=== PATIENT | male | born 2000 | race Caucasian/White ===

== ENCOUNTER 2021-01-25 11:13 | Emergency (ER) | payer OTHER ==
[2021-01-25 11:26] VITALS: RESP 18; TEMP 98.4
[2021-01-25] MEDS ORDERED: ONDANSETRON ODT 8 MG TAB.RAPDIS PO STA (12:10)
[2021-01-25] MEDS ORDERED: SODIUM CHLORIDE 0.9% 1,000 ML IV STA ×2 (12:10→13:47)
[2021-01-25] MEDS ORDERED: PANTOPRAZOLE 40 MG/10 ML VIAL IVP STA (12:10)
--- NOTE | 2021-01-25 12:39 | ED ---
General Adult HPI - General Chief complaint: Abdominal Pain Stated complaint: N/V/D Time Seen by Provider: 01/25/21 11:28 Source: patient Mode of arrival: wheelchair Limitations: no limitations - History of Present Illness Initial comments: Patient is a 21-year-old male presenting to the emergency Department with complaints of nausea and vomiting as well as abdominal cramping times one week. He states it started last week after he ate some chicken nuggets. He states he thought he felt better over the weekend but still did not have an appetite. The nausea and vomiting then started today again so he decided to come into the ER. Denies any diarrhea. He states he was unable to take his Effexor medication for approximately 3 days secondary to the vomiting so he felt like he might be withdrawing from that medication. He does admit to being a daily alcohol drinker, last drink was over 1 week ago. He has a history of an ulcer as well, takes omeprazole for that. He admits to history of appendectomy, no other abdominal surgeries. He states his cramping is generalized, no specific area pain. He denies any fevers, he does have some chills. No chest pain or shortness of breath, no coughing. He has no further complaints at this time. Upon arrival to the ER, his vital signs are stable. - Related Data Home Medications Medication Instructions Recorded Confirmed Methylphenidate HCl 20 mg PO BID@0700,1300 01/25/21 01/25/21 [Methylphenidate LA] Omeprazole 40 mg PO DAILY 01/25/21 01/25/21 Venlafaxine HCl ER [Effexor Xr] 75 mg PO DAILY 01/25/21 01/25/21 Previous Rx's Medication Instructions Recorded Ondansetron Odt [Zofran Odt] 4 mg PO Q8HR PRN #10 tab 01/25/21 Allergies Allergy/AdvReac Type Severity Reaction Status Date / Time No Known Allergies Allergy Verified 01/25/21 12:11 Review of Systems ROS Statement: Those systems with pertinent positive or pertinent negative responses have been documented in the HPI. ROS Other: All systems not noted in ROS Statement are negative. Past Medical History Past Medical History: GI Bleed Additional Past Medical History / Comment(s): ulcer History of Any Multi-Drug Resistant Organisms: None Reported Past Surgical History: Appendectomy Past Psychological History: Depression Smoking Status: Current every day smoker Past Alcohol Use History: Daily, Occasional Past Drug Use History: None Reported, Marijuana General Exam - General Exam Comments Initial Comments: GENERAL: Patient is well-developed and well-nourished. Patient is nontoxic and in no acute distress. HEAD: Atraumatic, normocephalic. EYES: Pupils equal round and reactive to light, extraocular movements intact, sclera anicteric, conjunctiva are normal. Eyelids were unremarkable. ENT: TMs normal, nares patent, oropharynx clear without exudates. Moist mucous membranes. NECK: Normal range of motion, supple without lymphadenopathy or JVD. LUNGS: Unlabored respirations. Breath sounds clear to auscultation bilaterally and equal. No wheezes rales or rhonchi. HEART: Regular rate and rhythm without murmurs, rubs or gallops. ABDOMEN: Generalized abdominal tenderness, no specific area pain. Soft, normoactive bowel sounds. No guarding, no rebound. No masses appreciated. : Deferred MUSCULOSKELETAL: Normal extremities with adequate strength and normal range of motion, no pitting or edema. No clubbing or cyanosis. NEUROLOGICAL: Patient is alert and oriented x 3. Motor and sensory are also intact. Cranial nerves II through XII grossly intact. Symmetrical smile. Normal speech, normal gait. PSYCH: Normal mood, normal affect. SKIN: Warm, Dry, normal turgor, no rashes or lesions noted. Limitations: no limitations Course Vital Signs 01/25/21 01/25/21 01/25/21 11:21 13:54 15:23 Temperature 98.4 F 98.4 F Pulse Rate 97 71 80 Respiratory 18 18 18 Rate Blood Pressure 103/59 154/95 110/85 O2 Sat by Pulse 99 100 100 Oximetry Medical Decision Making - Medical Decision Making Patient is a 21-year-old male here for nausea and vomiting times one week. No fevers, his vitals are stable here. He is generalized abdominal tenderness with palpation, no specific area pain. He does admit to being a daily drinker, last drink was 1 week ago. Labs revealed an elevated white count at 26.9, glucose was 214, lactic acid is 1.9. Lipase was normal at 39. Urine showed 3+ ketones, 2+ glucose. Serum alcohol was less than 10. After lab work revealed elevated white count, did order a CT of the abdomen which shows some scattered prominent but not a large mid abdominal and right lower quadrant mesenteric lymph nodes measuring up to 7 mm, there is some mild thickening of the left abdominal jejunal loops, correlate for enteritis, mild mesenteric adenitis. Patient was given 2 L of fluids, Protonix and Zofran. He reports much improvement in his symptoms. He has had no further vomiting. I discussed these findings with the patient and his mother. Patient is stable for discharge. I recommended continuing to increase his fluid intake, will give him some Zofran for any additional nausea. I will also give him GI referral. He needs also follow-up with his doctor within 1-3 days for lab recheck. Patient and patient's mother are both in agreement with this plan of care. Patient is stable for discharge. Patient is in agreement with this plan of care. Return parameters were discussed with the patient and they verbalized understanding. Case discussed with Dr. Barlow. - Lab Data Result diagrams: 01/25/21 12:29 01/25/21 12:29 Lab Results 01/25/21 01/25/21 01/25/21 Range/Units 12:29 12:29 12:29 WBC 26.9 H (3.8-10.6) k/uL RBC 5.36 (4.30-5.90) m/uL Hgb 16.5 (13.0-17.5) gm/dL Hct 47.2 (39.0-53.0) % MCV 88.0 (80.0-100.0) fL MCH 30.8 (25.0-35.0) pg MCHC 35.0 (31.0-37.0) g/dL RDW 12.4 (11.5-15.5) % Plt Count 376 (150-450) k/uL MPV 8.4 Neutrophils % 94 % Lymphocytes % 2 % Monocytes % 2 % Eosinophils % 2 % Basophils % 0 % Neutrophils # 25.3 H (1.3-7.7) k/uL Lymphocytes # 0.4 L (1.0-4.8) k/uL Monocytes # 0.6 (0-1.0) k/uL Eosinophils # 0.5 (0-0.7) k/uL Basophils # 0.1 (0-0.2) k/uL Manual Slide Review Performed Toxic Granulation Present PT (9.0-12.0) sec INR (<1.2) APTT (22.0-30.0) sec Sodium 136 L (137-145) mmol/L Potassium 4.5 (3.5-5.1) mmol/L Chloride 100 (98-107) mmol/L Carbon Dioxide 19 L (22-30) mmol/L Anion Gap 17 mmol/L BUN 20 (9-20) mg/dL Creatinine 1.23 (0.66-1.25) mg/dL Est GFR (CKD-EPI)AfAm >90 (>60 ml/min/1.73 sqM) Est GFR (CKD-EPI)NonAf 83 (>60 ml/min/1.73 sqM) Glucose 214 H (74-99) mg/dL Plasma Lactic Acid Dixon (0.7-2.0) mmol/L Calcium 10.9 H (8.4-10.2) mg/dL Total Bilirubin 1.5 H (0.2-1.3) mg/dL AST 26 (17-59) U/L ALT 25 (4-49) U/L Alkaline Phosphatase 75 (38-126) U/L Total Protein 8.8 H (6.3-8.2) g/dL Albumin 5.5 H (3.5-5.0) g/dL Amylase 59 (30-110) U/L Lipase 39 (23-300) U/L Urine Color Light Red Urine Appearance Cloudy (Clear) Urine pH 6.5 (5.0-8.0) Ur Specific [place] 1.038 H (1.001-1.035) Urine Protein 2+ H (Negative) Urine Glucose (UA) 2+ H (Negative) Urine Ketones 3+ H (Negative) Urine Blood Negative (Negative) Urine Nitrite Negative (Negative) Urine Bilirubin 1+ H (Negative) Urine Urobilinogen 2.0 (<2.0) mg/dL Ur Leukocyte Esterase Negative (Negative) Urine RBC 1 (0-5) /hpf Urine WBC 3 (0-5) /hpf Ur Squamous Epith Cells <1 (0-4) /hpf Urine Bacteria Rare H (None) /hpf Urine Mucus Many H (None) /hpf Urine Opiates Screen (NotDetected) Ur Oxycodone Screen (NotDetected) Urine Methadone Screen (NotDetected) Ur Propoxyphene Screen (NotDetected) Ur Barbiturates Screen (NotDetected) U Tricyclic Antidepress (NotDetected) Ur Phencyclidine Scrn (NotDetected) Ur Amphetamines Screen (NotDetected) U Methamphetamines Scrn (NotDetected) U Benzodiazepines Scrn (NotDetected) Urine Cocaine Screen (NotDetected) U Marijuana (THC) Screen (NotDetected) Serum Alcohol <10 mg/dL 01/25/21 01/25/21 01/25/21 Range/Units 12:29 12:29 12:29 WBC (3.8-10.6) k/uL RBC (4.30-5.90) m/uL Hgb (13.0-17.5) gm/dL Hct (39.0-53.0) % MCV (80.0-100.0) fL MCH (25.0-35.0) pg MCHC (31.0-37.0) g/dL RDW (11.5-15.5) % Plt Count (150-450) k/uL MPV Neutrophils % % Lymphocytes % % Monocytes % % Eosinophils % % Basophils % % Neutrophils # (1.3-7.7) k/uL Lymphocytes # (1.0-4.8) k/uL Monocytes # (0-1.0) k/uL Eosinophils # (0-0.7) k/uL Basophils # (0-0.2) k/uL Manual Slide Review Toxic Granulation PT 11.6 (9.0-12.0) sec INR 1.1 (<1.2) APTT 23.5 (22.0-30.0) sec Sodium (137-145) mmol/L Potassium (3.5-5.1) mmol/L Chloride (98-107) mmol/L Carbon Dioxide (22-30) mmol/L Anion Gap mmol/L BUN (9-20) mg/dL Creatinine (0.66-1.25) mg/dL Est GFR (CKD-EPI)AfAm (>60 ml/min/1.73 sqM) Est GFR (CKD-EPI)NonAf (>60 ml/min/1.73 sqM) Glucose (74-99) mg/dL Plasma Lactic Acid Dixon 1.9 (0.7-2.0) mmol/L Calcium (8.4-10.2) mg/dL Total Bilirubin (0.2-1.3) mg/dL AST (17-59) U/L ALT (4-49) U/L Alkaline Phosphatase (38-126) U/L Total Protein (6.3-8.2) g/dL Albumin (3.5-5.0) g/dL Amylase (30-110) U/L Lipase (23-300) U/L Urine Color Urine Appearance (Clear) Urine pH (5.0-8.0) Ur Specific [place] (1.001-1.035) Urine Protein (Negative) Urine Glucose (UA) (Negative) Urine Ketones (Negative) Urine Blood (Negative) Urine Nitrite (Negative) Urine Bilirubin (Negative) Urine Urobilinogen (<2.0) mg/dL Ur Leukocyte Esterase (Negative) Urine RBC (0-5) /hpf Urine WBC (0-5) /hpf Ur Squamous Epith Cells (0-4) /hpf Urine Bacteria (None) /hpf Urine Mucus (None) /hpf Urine Opiates Screen Not Detected (NotDetected) Ur Oxycodone Screen Not Detected (NotDetected) Urine Methadone Screen Not Detected (NotDetected) Ur Propoxyphene Screen Not Detected (NotDetected) Ur Barbiturates Screen Not Detected (NotDetected) U Tricyclic Antidepress Not Detected (NotDetected) Ur Phencyclidine Scrn Not Detected (NotDetected) Ur Amphetamines Screen Not Detected (NotDetected) U Methamphetamines Scrn Not Detected (NotDetected) U Benzodiazepines Scrn Not Detected (NotDetected) Urine Cocaine Screen Not Detected (NotDetected) U Marijuana (THC) Screen Detected H (NotDetected) Serum Alcohol mg/dL Disposition Clinical Impression: Nausea & vomiting, Leukocytosis, Mesenteric adenitis Disposition: HOME SELF-CARE Condition: Stable Instructions (If sedation given, give patient instructions): Mesenteric Adenitis (ED) Additional Instructions: Please return to the Emergency Department if symptoms worsen or any other concerns. Continue to increase fluid intake. May take Zofran for any additional nausea. Please follow-up with your regular physician in 1-3 days. Prescriptions: Ondansetron Odt [Zofran Odt] 4 mg PO Q8HR PRN #10 tab PRN Reason: Nausea Is patient prescribed a controlled substance at d/c from ED?: No Referrals: Joshua Simms MD [Primary Care Provider] - 1-2 days Mehnaz Chatman MD [STAFF PHYSICIAN] - 1-2 days
[2021-01-25 13:29] LABS: Basophils # (A) 0.1 k/uL (0-0.2); Basophils % (A) 0 %; Eosinophils # (A) 0.5 k/uL (0-0.7); Eosinophils % (A) 2 %; HCT 47.2 % (39.0-53.0); HGB 16.5 gm/dL (13.0-17.5); Lymphocytes # (A) 0.4 k/uL (1.0-4.8); Lymphocytes % (A) 2 %; MCH 30.8 pg (25.0-35.0); Mean Platelet Volume 8.4; Monocytes # (A) 0.6 k/uL (0-1.0); Monocytes % (A) 2 %; Neutrophils # (A) 25.3 k/uL (1.3-7.7); Neutrophils % (A) 94 %; Platelet Count 376 k/uL (150-450); RBC 5.36 m/uL (4.30-5.90); RDW 12.4 % (11.5-15.5); WBC 26.9 k/uL (3.8-10.6)
[2021-01-25 13:31] LABS: Appearance,Urine Cloudy (Clear); Bacteria,Urine Rare /hpf; Bilirubin,Urine 1+ (Negative); Blood,Urine Negative (Negative); Color,Urine Light Red; Glucose,Urine (UA) 2+ (Negative); INR 1.1 (<1.2); Leukocyte Esterase,Urine Negative (Negative); Mucus,Urine Many /hpf; Nitrite,Urine Negative (Negative); PH, Urine 6.5 (5.0-8.0); Partial Thromboplastin Time 23.5 sec (22.0-30.0); Protein,Urine 2+ (Negative); Prothrombin Time 11.6 sec (9.0-12.0); RBC,Urine 1 /hpf (0-5); Specific Gravity,Urine 1.038 (1.001-1.035); Squamous Epithelial Cell,Urine <1 /hpf (0-4); WBC,Urine 3 /hpf (0-5)
[2021-01-25 13:40] LABS: Amphetamine Screen,Urine Not Detected (NotDetected); Barbiturate Screen,Urine Not Detected (NotDetected); Benzodiazepines Screen,Urine Not Detected (NotDetected); Cocaine Screen,Urine Not Detected (NotDetected); Methadone Screen, Urine Not Detected (NotDetected); Opiate Screen,Urine Not Detected (NotDetected); Oxycodone Screen, Urine Not Detected (NotDetected); Phencyclidine Screen,Urine Not Detected (NotDetected); Tricyclic Antidepressant,Urine Not Detected (NotDetected); Urn Cannabinoid Scrn Detected (NotDetected)
[2021-01-25 13:45] LABS: Ketones,Urine 3+ (Negative)
[2021-01-25 13:50] LABS: ALT 25 U/L (4-49); AST 26 U/L (17-59); African American GFR (CKD) >90 (>60 ml/min/1.73 sqM); Albumin 5.5 g/dL (3.5-5.0); Alcohol <10 mg/dL; Alkaline Phosphatase 75 U/L (38-126); Amylase 59 U/L (30-110); Anion Gap 17 mmol/L; Blood Urea Nitrogen 20 mg/dL (9-20); Calcium 10.9 mg/dL (8.4-10.2); Carbon Dioxide 19 mmol/L (22-30); Chloride 100 mmol/L (98-107); Glucose 214 mg/dL (74-99); Lipase 39 U/L (23-300); Non-African American GFR(CKD) 83 (>60 ml/min/1.73 sqM); Potassium 4.5 mmol/L (3.5-5.1); Sodium 136 mmol/L (137-145); Total Bilirubin 1.5 mg/dL (0.2-1.3); Total Protein 8.8 g/dL (6.3-8.2)
[2021-01-25] MEDS ORDERED: METOCLOPRAMIDE 5 MG/ML 2 ML VIAL IVP STA (13:50)
[2021-01-25 14:16] LABS: Toxic Granulation Present
--- NOTE | 2021-01-25 14:26 | CT ---
EXAMINATION TYPE: CT abdomen pelvis w con DATE OF EXAM: 01/25/2021 COMPARISON: NONE HISTORY: 21-year-old male nausea, vomiting, generalized pain TECHNIQUE: Contiguous axial scanning of the abdomen and pelvis following administration of 100 ml Iso kervin 300 IV contrast. Delayed images through the kidneys and coronal/sagittal reconstructions perform ed. CT DLP: 630.2 mGycm Automated exposure control for dose reduction was used. FINDINGS: Heart normal size without pericardial effusion. Lung bases clear without pleural effusion. Liver borderline in size at 17.5 cm. No focal liver lesion or biliary ductal dilatation. Portal venou s system is patent. Gallbladder, adrenal glands, kidneys, spleen, and pancreas appear within normal limits. No dilated small bowel, free fluid, or free air. Some scattered prominent but nonenlarged mid abdomin al and right lower quadrant mesenteric lymph nodes measuring up to 7 mm. Some of the left abdominal j ejunal loops are also mildly thickened. Incidental 1.5 cm long small bowel intussusception in the pos terior lower pelvis, referred axial image 62 and coronal image 75. Hyperdense material scattered within left-sided abdominal jejunal loops and also within the duodenum and stomach. Some surgical material noted in the right lower quadrant probably related to prior appendectomy. Clin ically correlate. Mild stool in the right-sided colon. No pericolonic inflammation. Bladder partially distended. No abnormal fluid collection in the pelvis or pelvic lymphadenopathy. Bones: No osseous destructive process. Small inferior Schmorl's node of L5. IMPRESSION: 1. HYPERDENSE MATERIAL SCATTERED THROUGHOUT LEFT-SIDED JEJUNAL LOOPS. SUSPECT SOME TYPE OF INGESTED M EDICATION SUCH PEPTO-BISMOL. 2. SOME SCATTERED PROMINENT BUT NONENLARGED MID ABDOMINAL AND RIGHT LOWER QUADRANT MESENTERIC LYMPH N ODES MEASURING UP TO 7 MM. ALSO, MILDLY THICKENED LEFT ABDOMINAL JEJUNAL LOOPS. CORRELATE FOR AN ENTE RITIS/MILD MESENTERIC ADENITIS.
[2021-01-25] MEDS ORDERED: ONDANSETRON 4 MG ODT STARTER PACK 2 TAB BTL PO STA (15:05)
[2021-01-25 15:25] VITALS: BP 110/85; PULSE 80
== END 2021-01-25 15:26 | disposition home or self-care (01) ==
LOC: EC 11:13
DX: I88.0 Nonspecific mesenteric lymphadenitis (principal); D72.829 Elevated white blood cell count, unspecified; F32.9 Major depressive disorder, single episode, unspecified; F12.90 Cannabis use, unspecified, uncomplicated; F17.200 Nicotine dependence, unspecified, uncomplicated; Z90.49 Acquired absence of other specified parts of digestive tract
CPT/HCPCS: 36415; 80053; 82150; 83605; 83690; 85025; 85610; 85730; 81001; 80306; 80320; 74177; 99284; 96374; 96375; 96361; J2765; S0119; C9113; Q9967

== ENCOUNTER 2021-06-15 07:52 | Inpatient (IN) | payer OTHER ==
[2021-06-15] MEDS ORDERED: diphenhydrAMINE 50 MG/ML 1 ML VIAL IVP STA (08:16)
[2021-06-15] MEDS ORDERED: ONDANSETRON 4 MG/2 ML VIAL IVP STA (08:16)
[2021-06-15] MEDS ORDERED: SODIUM CHLORIDE 0.9% 1,000 ML IV STA ×2 (08:16→09:15)
[2021-06-15] MEDS ORDERED: PANTOPRAZOLE 40 MG/10 ML VIAL IVP STA (08:17)
--- NOTE | 2021-06-15 08:29 | ED ---
Nausea/Vomiting/Diarrhea HPI - General Chief complaint: Nausea/Vomiting/Diarrhea Stated complaint: vomiting Time Seen by Provider: 06/15/21 08:03 Source: patient Mode of arrival: wheelchair Limitations: no limitations - History of Present Illness Initial comments: Patient is a 21-year-old male presenting to the emergency Department with complaints of nausea and vomiting over the past 2 days. He does admit to abdominal cramping, no specific area abdominal pain. Does have a little bit of diarrhea as well. He's had a similar episode happen a few months ago. He does admit to smoking marijuana and that is what seems to be bringing it on. He does occasionally drink alcohol as well. He does admit to previous appendectomy, no other abdominal surgeries. He denies any fevers or chills, no chest pain or shortness of breath. His no further complaints at this time. - Related Data Allergies Allergy/AdvReac Type Severity Reaction Status Date / Time No Known Allergies Allergy Verified 06/15/21 09:23 Review of Systems ROS Statement: Those systems with pertinent positive or pertinent negative responses have been documented in the HPI. ROS Other: All systems not noted in ROS Statement are negative. Past Medical History Past Medical History: GI Bleed Additional Past Medical History / Comment(s): ulcer, chs History of Any Multi-Drug Resistant Organisms: None Reported Past Surgical History: Appendectomy Past Psychological History: Depression Smoking Status: Current every day smoker Past Alcohol Use History: Occasional Past Drug Use History: Marijuana General Exam - General Exam Comments Initial Comments: GENERAL: Patient is well-developed and well-nourished. Patient is nontoxic and in mild distress. HEAD: Atraumatic, normocephalic. EYES: Pupils equal round and reactive to light, extraocular movements intact, sclera anicteric, conjunctiva are normal. Eyelids were unremarkable. ENT: Nares patent, oropharynx clear without exudates. Moist mucous membranes. NECK: Normal range of motion, supple without lymphadenopathy or JVD. LUNGS: Unlabored respirations. Breath sounds clear to auscultation bilaterally and equal. No wheezes rales or rhonchi. HEART: Regular rate and rhythm without murmurs, rubs or gallops. ABDOMEN: Soft, generalized abdominal discomfort with palpation, no specific area pain, normoactive bowel sounds. No guarding, no rebound. No masses appreciated. : Deferred MUSCULOSKELETAL: Normal extremities with adequate strength and normal range of motion, no pitting or edema. No clubbing or cyanosis. NEUROLOGICAL: Patient is alert and oriented x 3. PSYCH: Normal mood, normal affect. SKIN: Warm, Dry, normal turgor, no rashes or lesions noted. Limitations: no limitations Course Vital Signs 06/15/21 07:54 Temperature 97.7 F Pulse Rate 115 H Respiratory 18 Rate Blood Pressure 158/129 O2 Sat by Pulse 99 Oximetry Medical Decision Making - Medical Decision Making Patient is a 21-year-old male here for nausea and vomiting for 2 days. He does admit to smoking marijuana and this usually will bring it on. He does admit to some abdominal cramping, no specific area pain. No fevers. Labs show a white count 22.7, sodium is 134, creatinine is 4.93 with BUN 33, glucose is 250. Lipase is 70. Patient given a liter of fluids, Benadryl and Zofran does report some mild improvement in his symptoms. Given patient's creatinine, patient will be admitted for DANTE, n/v. Patient accepted by Dr. Samson, with consult to nephrology. Urinalysis, ultrasound of kidneys are pending. Discussed with Dr. Guerrier. - Lab Data Result diagrams: 06/15/21 08:20 06/15/21 08:20 Lab Results 06/15/21 06/15/21 Range/Units 08:20 08:20 WBC 22.7 H (3.8-10.6) k/uL RBC 5.59 (4.30-5.90) m/uL Hgb 17.6 H (13.0-17.5) gm/dL Hct 50.8 (39.0-53.0) % MCV 90.8 (80.0-100.0) fL MCH 31.6 (25.0-35.0) pg MCHC 34.8 (31.0-37.0) g/dL RDW 12.1 (11.5-15.5) % Plt Count 321 (150-450) k/uL MPV 8.3 Neutrophils % 90 % Lymphocytes % 3 % Monocytes % 4 % Eosinophils % 2 % Basophils % 0 % Neutrophils # 20.5 H (1.3-7.7) k/uL Lymphocytes # 0.7 L (1.0-4.8) k/uL Monocytes # 0.9 (0-1.0) k/uL Eosinophils # 0.4 (0-0.7) k/uL Basophils # 0.1 (0-0.2) k/uL Sodium 134 L (137-145) mmol/L Potassium 4.4 (3.5-5.1) mmol/L Chloride 90 L (98-107) mmol/L Carbon Dioxide 17 L (22-30) mmol/L Anion Gap 27 mmol/L BUN 33 H (9-20) mg/dL Creatinine 4.93 H (0.66-1.25) mg/dL Est GFR (CKD-EPI)AfAm 18 (>60 ml/min/1.73 sqM) Est GFR (CKD-EPI)NonAf 15 (>60 ml/min/1.73 sqM) Glucose 250 H (74-99) mg/dL Calcium 11.6 H (8.4-10.2) mg/dL Total Bilirubin 1.2 (0.2-1.3) mg/dL AST 32 (17-59) U/L ALT 23 (4-49) U/L Alkaline Phosphatase 80 (38-126) U/L Total Protein 10.4 H (6.3-8.2) g/dL Albumin >6.6 H (3.5-5.0) g/dL Lipase 69 (23-300) U/L Disposition Clinical Impression: DANTE (acute kidney injury), Dehydration, Nausea & vomiting Disposition: ADMITTED IP TO THIS [facility] Condition: Stable Is patient prescribed a controlled substance at d/c from ED?: No Referrals: Joshua Simms MD [Primary Care Provider] - 1-2 days Decision Date: 06/15/21 Decision Time: 09:23
[2021-06-15 08:31] LABS: Basophils # (A) 0.1 k/uL (0-0.2); Basophils % (A) 0 %; Eosinophils # (A) 0.4 k/uL (0-0.7); Eosinophils % (A) 2 %; HCT 50.8 % (39.0-53.0); HGB 17.6 gm/dL (13.0-17.5); Lymphocytes # (A) 0.7 k/uL (1.0-4.8); Lymphocytes % (A) 3 %; MCH 31.6 pg (25.0-35.0); MCHC 34.8 g/dL (31.0-37.0); MCV 90.8 fL (80.0-100.0); Mean Platelet Volume 8.3; Monocytes # (A) 0.9 k/uL (0-1.0); Monocytes % (A) 4 %; Neutrophils # (A) 20.5 k/uL (1.3-7.7); Neutrophils % (A) 90 %; Platelet Count 321 k/uL (150-450); RBC 5.59 m/uL (4.30-5.90); RDW 12.1 % (11.5-15.5); WBC 22.7 k/uL (3.8-10.6)
[2021-06-15 08:41] LABS: ALT 23 U/L (4-49); AST 32 U/L (17-59); African American GFR (CKD) 18 (>60 ml/min/1.73 sqM); Alkaline Phosphatase 80 U/L (38-126); Anion Gap 27 mmol/L; Blood Urea Nitrogen 33 mg/dL (9-20); Calcium 11.6 mg/dL (8.4-10.2); Carbon Dioxide 17 mmol/L (22-30); Chloride 90 mmol/L (98-107); Glucose 250 mg/dL (74-99); Lipase 69 U/L (23-300); Non-African American GFR(CKD) 15 (>60 ml/min/1.73 sqM); Potassium 4.4 mmol/L (3.5-5.1); Sodium 134 mmol/L (137-145); Total Bilirubin 1.2 mg/dL (0.2-1.3); Total Protein 10.4 g/dL (6.3-8.2)
[2021-06-15 09:14] LABS: Albumin >6.6 g/dL (3.5-5.0)
[2021-06-15] MEDS ORDERED: NALOXONE 0.4 MG/ML 1 ML VIAL IV PRN (09:18)
[2021-06-15] MEDS ORDERED: ACETAMINOPHEN TAB 325 MG TAB PO PRN (09:18)
[2021-06-15] MEDS ORDERED: SODIUM CHLORIDE 0.9% 1,000 ML IV SCH ×2 (09:30→11:45)
[2021-06-15 09:59] LABS: Amorphous Sediment,Urine Occasional /hpf; Appearance,Urine Turbid (Clear); Bacteria,Urine Rare /hpf; Bilirubin,Urine 2+ (Negative); Blood,Urine Moderate (Negative); Calcium Oxalate Crystals,Urine Rare /hpf; Cellular Casts,Urine 6 /lpf (0); Color,Urine Yellow; Glucose,Urine (UA) Trace (Negative); Granular Casts,Urine 68 /lpf (0); Hyaline Casts,Urine 279 /lpf (0-2); Ketones,Urine 1+ (Negative); Leukocyte Esterase,Urine Negative (Negative); Mucus,Urine Many /hpf; Nitrite,Urine Negative (Negative); PH, Urine 5.5 (5.0-8.0); Protein,Urine 2+ (Negative); RBC,Urine 5 /hpf (0-5); Specific Gravity,Urine 1.026 (1.001-1.035); WBC,Urine 18 /hpf (0-5)
--- NOTE | 2021-06-15 10:11 | US ---
EXAMINATION TYPE: US kidneys/renal and bladder DATE OF EXAM: 06/15/2021 COMPARISON: CT 2020 CLINICAL HISTORY: DANTE. EXAM MEASUREMENTS: Right Kidney: 10.3 x 4.2 x 5.3 cm Left Kidney: 10.2 x 5.2 x 5.0 cm Right Kidney: No hydronephrosis or masses seen Left Kidney: No hydronephrosis or masses seen Bladder: wnl Bilateral Jets seen: no There is no evidence for hydronephrosis at this point in time. No nephrolithiasis is seen. No dorothy s are identified. The urinary bladder is anechoic. Bilateral ureteral jets are seen. IMPRESSION: Unremarkable kidneys.
--- NOTE | 2021-06-15 10:50 | P.NPCON ---
History of Present Illness - Reason for Consult acute renal failure - History of Present Illness Reason for consultation: Acute kidney injury History of present illness: Patient is a 21-year-old male seen in renal consultation for acute kidney injury. Patient was seen and examined in the emergency room. Patient denies any prior history of kidney disease. Patient's creatinine in January 2021 with 1.23. This admission and was elevated at 4.93. He did receive 2 L of normal saline bolus and is now maintained on normal saline at 100 mL an hour. Renal ultrasound revealed no evidence of hydronephrosis. Patient presented to the hospital with nausea and vomiting which began yesterday morning. Patient states he didn't urinate much yesterday but did this morning in the ER. No hematuria or dysuria. Denies use of nonsteroidals. No abdominal pain. No edema. No chest pain or shortness of breath. Denies family history of kidney disease. Calcium was also elevated at 11.6 and his albumin was greater than 6.6. Patient is unsure as to what he ate Monday for dinner. Vital signs are stable. General: The patient appeared well nourished and normally developed. HEENT: Head exam is unremarkable. Neck is without jugular venous distension. LUNGS: Lungs are clear to auscultation and percussion. HEART: Rate and Rhythm are regular. ABDOMEN: Soft, no distention. EXTREMITITES: No edema. Past Medical History Past Medical History: GI Bleed Additional Past Medical History / Comment(s): ulcer, chs History of Any Multi-Drug Resistant Organisms: None Reported Past Surgical History: Appendectomy Past Psychological History: Depression Smoking Status: Current every day smoker Past Alcohol Use History: Occasional Past Drug Use History: Marijuana Medications and Allergies Home Medications Medication Instructions Recorded Confirmed Type Venlafaxine HCl [Effexor XR] 150 mg PO DAILY 06/15/21 06/15/21 History Allergies Allergy/AdvReac Type Severity Reaction Status Date / Time No Known Allergies Allergy Verified 06/15/21 09:23 Physical Exam Vitals: Vital Signs Temp Pulse Resp BP Pulse Ox 06/15/21 09:46 78 18 158/108 99 06/15/21 07:54 97.7 F 115 H 18 158/129 99 Intake and Output 06/14/21 06/15/21 06/15/21 22:59 06:59 14:59 Other: Weight 81.647 kg Results - Lab Results Most recent lab results Calcium 11.6 mg/dL (8.4-10.2) H 06/15/21 08:20 06/15/21 08:20 06/15/21 08:20 Assessment and Plan Plan: Assessment: 1. Acute kidney injury mostly prerenal secondary to hypovolemia from nausea and vomiting. Creatinine 4.93 on admission. No evidence of hydronephrosis noted on kidney after some. 2. Metabolic acidosis secondary to acute kidney injury and lactic acidosis. 3. Nausea and vomiting possibly gastroenteritis. 4. Hypovolemic hyponatremia. 5. Hypercalcemia secondary to volume contraction. Albumin high. Corrected calcium would be in the normal range. Plan: Maintain normal saline. Avoid nephrotoxins. Repeat labs in the morning. Thank you for the consultation. I will continue to follow the patient with you during his hospital stay.
[2021-06-15] MEDS: ENOXAPARIN 40 MG/0.4 ML SYRINGE SQ SCH (12:05)
--- NOTE | 2021-06-15 13:15 | P.HPIM ---
History of Present Illness H&P Date: 06/15/21 Chief Complaint: Vomiting History of presenting complaint: This is a pleasant 21-year-old patient who follows with Dr. Joshua Simms. Normally in good health. He does take Zofran occasionally for nausea. Patient yesterday morning started vomiting rather frequently. And Vomiting. Started having some abdominal cramping. No fever no chills. No diarrhea. Also had vomiting this morning. [place] rather exhausted. Decided to come into the hospital. Unable to keep anything down. Found to have a creatinine of 4.93. Denies any prior renal history. Rather tired and rundown. Decreased urine output. Review of systems: GEN.: Weak and tired EYES: None HEENT: None NECK: None RESPIRATORY: None CARDIOVASCULAR: None GASTROINTESTINAL: As above GENITOURINARY: None MUSCULOSKELETAL: None LYMPHATICS: None HEMATOLOGICAL: None PSYCHIATRY: None NEUROLOGICAL: None Past medical history to include: GI bleed with ulcer Social history: This was patient is. Does [employer] work. Denies alcohol. Smokes about 3 marijuana joints a day. For about 4 years. Denies use of any other recreational street drugs. Family history: Reviewed, noncontributory to presentation Physical examination: VITAL SIGNS: 97.7, 115, 18, 158/129, 99% room air GENERAL: BMI 22.5, laying in bed, tired appearing. EYES: Pupils equal. Conjunctiva normal. HEENT: External appearance of nose and ears normal, oral cavity dry mucous membranes. NECK: JVD not raised; masses not palpable. HEART: First and second heart sounds are normal; no edema. LUNGS: Respiratory rate normal; clear to auscultation. ABDOMEN: Soft, nontender, liver spleen not palpable, no masses palpable. PSYCH: Alert and oriented x3; mood and affect normal. NEUROLOGICAL: Cranial nerves grossly intact; no facial asymmetry, power and sensation grossly intact. LYMPHATICS: No lymph nodes palpable in the axilla and neck INVESTIGATIONS, reviewed in the clinical context: WBC 22.7 hemoglobin 7.6 platelets 321 increased neutrophils potassium 4.4 BUN 33 creatinine 4.93 glucose 250 Lactic acid 4.7, CPK 242 UA protein 2+ ketones 1+ bilirubin 2+ Urine acetone negative Assessment and plan: -Acute kidney injury, likely prerenal from severe vomiting and dehydration IV fluids aggressively -Metabolic from acute kidney injury Add bicarbonate to IV fluids -Type II lactic acidosis from fluid deficit. Not sepsis -Hypocalcemia from dehydration IV fluids -Recreational marijuana use -Peptic ulcer disease Protonix IV fluids at 200 mL an hour. IV bicarbonate. Follow labs. Clear liquids diet. Advance as tolerated. Nephrology consult Past Medical History Past Medical History: GI Bleed Additional Past Medical History / Comment(s): ulcer, chs History of Any Multi-Drug Resistant Organisms: None Reported Past Surgical History: Appendectomy Past Psychological History: Depression Smoking Status: Current every day smoker Past Alcohol Use History: Occasional Past Drug Use History: Marijuana Medications and Allergies Home Medications Medication Instructions Recorded Confirmed Type Venlafaxine HCl [Effexor XR] 150 mg PO DAILY 06/15/21 06/15/21 History Allergies Allergy/AdvReac Type Severity Reaction Status Date / Time No Known Allergies Allergy Verified 06/15/21 09:23 Physical Exam Vitals: Vital Signs Temp Pulse Resp BP Pulse Ox 06/15/21 07:54 97.7 F 115 H 18 158/129 99 Intake and Output 06/14/21 06/15/21 06/15/21 22:59 06:59 14:59 Other: Weight 81.647 kg Results CBC & Chem 7: 06/15/21 08:20 06/15/21 08:20 Labs: Abnormal Lab Results - Last 24 Hours (Table) 06/15/21 06/15/21 Range/Units 08:20 08:20 WBC 22.7 H (3.8-10.6) k/uL Hgb 17.6 H (13.0-17.5) gm/dL Neutrophils # 20.5 H (1.3-7.7) k/uL Lymphocytes # 0.7 L (1.0-4.8) k/uL Sodium 134 L (137-145) mmol/L Chloride 90 L (98-107) mmol/L Carbon Dioxide 17 L (22-30) mmol/L BUN 33 H (9-20) mg/dL Creatinine 4.93 H (0.66-1.25) mg/dL Glucose 250 H (74-99) mg/dL Calcium 11.6 H (8.4-10.2) mg/dL Total Protein 10.4 H (6.3-8.2) g/dL Albumin >6.6 H (3.5-5.0) g/dL
[2021-06-15] MEDS: DEXTROSE 5%-0.45% NACL 1,000 ML with SODIUM BICARB (1 MEQ/ML) 50 ML IV SCH ×6 (13:16→21:36)
[2021-06-15] MEDS: PANTOPRAZOLE 40 MG TABLET PO SCH ×2 (13:18→16:19)
[2021-06-15] MEDS: ONDANSETRON 4 MG/2 ML VIAL IVP PRN ×2 (15:39→23:50)
[2021-06-15] MEDS: cloNIDine HCL 0.1 MG TAB PO SCH (16:16)
[2021-06-16] MEDS: cloNIDine HCL 0.1 MG TAB PO SCH ×3 (00:56→22:20)
[2021-06-16] MEDS: DEXTROSE 5%-0.45% NACL 1,000 ML with SODIUM BICARB (1 MEQ/ML) 50 ML IV SCH ×6 (05:00→12:21)
[2021-06-16] MEDS: ONDANSETRON 4 MG/2 ML VIAL IVP PRN ×2 (08:09→18:07)
[2021-06-16] MEDS: PANTOPRAZOLE 40 MG TABLET PO SCH ×2 (08:09→18:07)
[2021-06-16] MEDS: ENOXAPARIN 40 MG/0.4 ML SYRINGE SQ SCH (08:11)
[2021-06-16] MEDS: NICOTINE 14MG/24HR PATCH TRANSDERM SCH (09:06)
[2021-06-16] MEDS ORDERED: hydrALAZINE HCL 20 MG/ML 1 ML VIAL IVP PRN (11:10)
--- NOTE | 2021-06-16 13:02 | P.PN ---
Subjective Patient is seen in follow-up for acute kidney injury. Creatinine 4.93 on admission. Labs from today are pending. He's on clear liquid diet. No further vomiting. Urine output good. Vital signs are stable. General: The patient appeared well nourished and normally developed. HEENT: Head exam is unremarkable. Neck is without jugular venous distension. LUNGS: Breath sounds decreased. HEART: Rate and Rhythm are regular. ABDOMEN: Soft, no distention. EXTREMITITES: No clubbing, cyanosis, or edema. Objective - Vital Signs Vital signs: Vital Signs Temp 98.8 F 06/16/21 11:25 Pulse 82 06/16/21 11:25 Resp 14 06/16/21 11:25 BP 107/63 06/16/21 11:25 Pulse Ox 99 06/16/21 11:25 Intake & Output 06/15/21 06/16/21 06/16/21 18:59 06:59 18:59 Intake Total 400 3400 Balance 400 3400 Weight 81.647 kg Intake: Intake, IV Titration 400 2400 Amount Dextrose 5%-0.45% NaCl 1, 400 2400 000 ml @ 200 mls/hr IV . Q5H15M RENÉ with Sodium Bicarb (1 Meq/ml) 50 ml Rx#:[id number] Oral 1000 Other: Voiding Method Toilet Toilet Toilet # Voids 5 - Labs CBC & Chem 7: 06/15/21 08:20 06/15/21 08:20 Labs: Abnormal Lab Results - Last 24 Hours (Table) 06/15/21 Range/Units 12:19 Creatine Kinase 242 H (55-170) U/L Microbiology - Last 24 Hours (Table) 06/15/21 09:27 Urine Culture - Final Urine,Voided Assessment and Plan Plan: Assessment: 1. Acute kidney injury mostly prerenal secondary to hypovolemia from nausea and vomiting. Creatinine 4.93 on admission. No evidence of hydronephrosis noted on ultrasound. 2. Metabolic acidosis secondary to acute kidney injury and lactic acidosis. 3. Nausea and vomiting possibly gastroenteritis. Better. 4. Hypovolemic hyponatremia. 5. Hypercalcemia secondary to volume contraction. Albumin high. Corrected calcium would be in the normal range. Plan: Maintain IV fluids. Avoid nephrotoxins. Morning labs pending.
--- NOTE | 2021-06-16 17:38 | P.PN ---
Progress Note - Text Progress Note Date: 06/16/21 Chief Complaint: Vomiting History of presenting complaint: This is a pleasant 21-year-old patient who follows with Dr. Joshua Simms. Normally in good health. He does take Zofran occasionally for nausea. Patient yesterday morning started vomiting rather frequently. And Vomiting. Started having some abdominal cramping. No fever no chills. No diarrhea. Also had vomiting this morning. [place] rather exhausted. Decided to come into the hospital. Unable to keep anything down. Found to have a creatinine of 4.93. Denies any prior renal history. Rather tired and rundown. Decreased urine output. Admitted with acute kidney injury. Possibly prerenal. Secondary to nausea vomiting. Started IV fluids with bicarbonate supplement. June 16: Urine doing better. Patient feeling better. Mother at the bedside. Getting IV fluids. Did not eat breakfast as not much of an appetite. Keen to try liquids. Labs ordered from this morning not available Review of systems: Was done for constitutional, cardiovascular, GI, pulmonary. relevant finding as above Active Medications Acetaminophen (Acetaminophen Tab 325 Mg Tab) 650 mg PO Q6HR PRN PRN Reason: Mild Pain or Fever > 100.5 Clonidine (Clonidine Hcl 0.1 Mg Tab) 0.1 mg PO BID [facility] Last Admin: 06/16/21 08:09 Dose: 0.1 mg Documented by: Enoxaparin Sodium (Enoxaparin 30 Mg/0.3 Ml Syringe) 30 mg SQ DAILY [facility] Hydralazine HCl (Hydralazine Hcl 20 Mg/Ml 1 Ml Vial) 10 mg IVP Q6HR PRN PRN Reason: Blood Pressure - High Sodium Bicarbonate 50 ml/ (Dextrose/Sodium Chloride) 1,050 mls @ 125 mls/hr IV .Q8H24M [facility] Last Admin: 06/16/21 12:21 Dose: 125 mls/hr Documented by: Naloxone HCl (Naloxone 0.4 Mg/Ml 1 Ml Vial) 0.2 mg IV Q2M PRN PRN Reason: Opioid Reversal Nicotine (Nicotine 14mg/24hr Patch) 1 patch TRANSDERM DAILY [facility] Last Admin: 06/16/21 09:06 Dose: 1 patch Documented by: Ondansetron HCl (Ondansetron 4 Mg/2 Ml Vial) 4 mg IVP Q8HR PRN PRN Reason: Nausea And Vomiting Last Admin: 06/16/21 08:09 Dose: 4 mg Documented by: Pantoprazole Sodium (Pantoprazole 40 Mg Tablet) 40 mg PO AC-BID RENÉ Last Admin: 06/16/21 08:09 Dose: 40 mg Documented by: Past medical history to include: GI bleed with ulcer Social history: This was patient is. Does [employer] work. Denies alcohol. Smokes about 3 marijuana joints a day. For about 4 years. Denies use of any other recreational street drugs. Family history: Reviewed, noncontributory to presentation Physical examination: VITAL SIGNS: 99, 58, 16, 160/110, 96% room air GENERAL: Sitting at the edge of the bed, looking better EYES: Pupils equal. Conjunctiva normal. HEENT: External appearance of nose and ears normal, oral cavity dry mucous membranes. NECK: JVD not raised; masses not palpable. HEART: First and second heart sounds are normal; no edema. LUNGS: Respiratory rate normal; clear to auscultation. ABDOMEN: Soft, nontender, liver spleen not palpable, no masses palpable. PSYCH: Alert and oriented x3; mood and affect normal. INVESTIGATIONS, reviewed in the clinical context: WBC 22.7 hemoglobin 7.6 platelets 321 increased neutrophils potassium 4.4 BUN 33 creatinine 4.93 glucose 250 Lactic acid 4.7, CPK 242 UA protein 2+ ketones 1+ bilirubin 2+ Urine acetone negative Assessment and plan: -Acute kidney injury, likely prerenal from severe vomiting and dehydration IV fluids aggressively. Labs ordered from this morning pending -Metabolic from acute kidney injury Add bicarbonate to IV fluids. Labs ordered from this morning pending -Type II lactic acidosis from fluid deficit. Not sepsis -Hypercalcemia from dehydration IV fluids -Recreational marijuana use -ADHD Patient takes Ritalin -Peptic ulcer disease Protonix IV fluids at 125L an hour. IV bicarbonate. Follow labs. Advance to soft bland diet. Labs are pending from this morning.
[2021-06-16] MEDS: SODIUM CHLORIDE 0.9% 1,000 ML IV SCH (18:07)
[2021-06-17] MEDS: ONDANSETRON 4 MG/2 ML VIAL IVP PRN ×3 (01:07→15:10)
[2021-06-17] MEDS: SODIUM CHLORIDE 0.9% 1,000 ML IV SCH ×2 (04:22→14:06)
[2021-06-17] MEDS: PANTOPRAZOLE 40 MG TABLET PO SCH (05:38)
[2021-06-17 07:31] LABS: Magnesium 2.3 mg/dL (1.6-2.3)
[2021-06-17] MEDS: NICOTINE 14MG/24HR PATCH TRANSDERM SCH (07:58)
[2021-06-17] MEDS: cloNIDine HCL 0.1 MG TAB PO SCH (07:58)
[2021-06-17] MEDS ORDERED: ENOXAPARIN 30 MG/0.3 ML SYRINGE SQ SCH (09:00)
--- NOTE | 2021-06-17 09:17 | P.PN ---
Subjective Patient is seen in follow-up for acute kidney injury. Creatinine 4.93 on admission. He's on clear liquid diet. Vomited again yesterday. No labs since admission. Vital signs are stable. General: The patient appeared well nourished and normally developed. HEENT: Head exam is unremarkable. Neck is without jugular venous distension. LUNGS: Breath sounds decreased. HEART: Rate and Rhythm are regular. ABDOMEN: Soft, no distention. EXTREMITITES: No clubbing, cyanosis, or edema. Objective - Vital Signs Vital signs: Vital Signs Temp 98.9 F 06/17/21 05:00 Pulse 61 06/17/21 05:00 Resp 18 06/17/21 05:00 BP 116/65 06/17/21 05:00 Pulse Ox 96 06/17/21 05:00 Intake & Output 06/16/21 06/17/21 06/17/21 18:59 06:59 18:59 Intake Total 1850 2200 Balance 1850 2200 Intake: Intake, IV Titration 1850 1200 Amount Dextrose 5%-0.45% NaCl 1, 1750 000 ml @ 125 mls/hr IV . Q8H24M RENÉ with Sodium Bicarb (1 Meq/ml) 50 ml Rx#:[id number] Sodium Chloride 0.9% 1, 100 1200 000 ml @ 100 mls/hr IV . Q10H RENÉ Rx#:[id number] Oral 1000 Other: Voiding Method Toilet Toilet # Voids 3 - Labs CBC & Chem 7: 06/15/21 08:20 06/15/21 08:20 Labs: Microbiology - Last 24 Hours (Table) 06/15/21 09:27 Urine Culture - Final Urine,Voided Assessment and Plan Plan: Assessment: 1. Acute kidney injury mostly prerenal secondary to hypovolemia from nausea and vomiting. Creatinine 4.93 on admission. No evidence of hydronephrosis noted on ultrasound. 2. Metabolic acidosis secondary to acute kidney injury and lactic acidosis. 3. Nausea and vomiting possibly gastroenteritis. Better. 4. Hypovolemic hyponatremia. 5. Hypercalcemia secondary to volume contraction. Albumin high. Corrected calcium would be in the normal range. Plan: Maintain IV fluids. Avoid nephrotoxins. Morning labs pending - lab in mtint was called as labs have not resulted in 2 days. Await results.
[2021-06-17 12:31] VITALS: BP 138/94; PULSE 73; RESP 17; TEMP 98.8
[2021-06-17 14:07] LABS: African American GFR (CKD) 60.6 (60.0-200.0); Albumin 5.3 g/dL (3.80-4.90); Albumin/Globulin Ratio 2.04 (1.60-3.17); Anion Gap 20.3 mmol/L (4.00-12.00); BUN/Creat Ratio 18.33 Ratio (12.00-20.00); Calcium 10.5 mg/dL (8.7-10.3); Carbon Dioxide 19.7 mmol/L (21.6-31.8); Globulin 2.6 g/dL (1.6-3.3); Non-African American GFR(CKD) 52.3 (60.0-200.0); Potassium 4.5 mmol/L (3.5-5.5); Total Protein 7.9 g/dL (6.2-8.2)
[2021-06-17 14:24] LABS: ALT 21 U/L (4-49); AST 37 U/L (17-59); African American GFR (CKD) >90 (>60 ml/min/1.73 sqM); Albumin 4.2 g/dL (3.5-5.0); Albumin/Globulin Ratio 1.8; Alkaline Phosphatase 41 U/L (38-126); Anion Gap 10 mmol/L; Blood Urea Nitrogen 24 mg/dL (9-20); Calcium 9.5 mg/dL (8.4-10.2); Carbon Dioxide 29 mmol/L (22-30); Chloride 98 mmol/L (98-107); Globulin 2.4 g/dL; Glucose 119 mg/dL (74-99); Non-African American GFR(CKD) >90 (>60 ml/min/1.73 sqM); Potassium 3.9 mmol/L (3.5-5.1); Sodium 137 mmol/L (137-145); Total Bilirubin 1.1 mg/dL (0.2-1.3); Total Protein 6.6 g/dL (6.3-8.2)
--- NOTE | 2021-06-17 18:25 | P.DS ---
Providers Date of admission: 06/15/21 09:16 Expected date of discharge: 06/17/21 Attending physician: Jose Samson Consults: 06/15/21 09:19 Consult Physician Urgent Consulting Provider: Ugo Stevenson Consult Reason/Comments: DANTE, n/v Do you want consulting provider notified?: Yes Primary care physician: [facility] Hospital Course: Chief Complaint: Vomiting History of presenting complaint: This is a pleasant 21-year-old patient who follows with Dr. Joshua Simms. Normally in good health. He does take Zofran occasionally for nausea. Patient yesterday morning started vomiting rather frequently. And Vomiting. Started having some abdominal cramping. No fever no chills. No diarrhea. Also had vomiting this morning. [place] rather exhausted. Decided to come into the hospital. Unable to keep anything down. Found to have a creatinine of 4.93. Denies any prior renal history. Rather tired and rundown. Decreased urine output. Admitted with acute kidney injury. Possibly prerenal. Secondary to nausea vomiting. Started IV fluids with bicarbonate supplement. June 16: Urine doing better. Patient feeling better. Mother at the bedside. Getting IV fluids. Did not eat breakfast as not much of an appetite. Keen to try liquids. Labs ordered from this morning not available June 17: Patient did vomit his breakfast. He has had chronic nausea. Patient advised about physical maneuvers with reflux symptoms. He'll be discharged from Protonix. Labs drawn yesterday came back later today. Creatinine has come down to 1.07. Discussed with Dr. Stevenson from nephrology. Clonidine will be discontinued. Blood pressures chair affect patient was felt to be from nausea vomiting in distress from the same. Care was discussed with the patient and mother the bedside. Patient will follow-up with Dr. Stevenson and with GI as an outpatient. Discussion and discharge planning more than 35 minutes Consultation: Dr. Stevenson from nephrology Past medical history to include: GI bleed with ulcer. ADHD. Depression. Social history: Lives with his parents. Does [employer] work. Denies alcohol. Smokes about 3 marijuana joints a day. For about 4 years. Denies use of any other recreational street drugs. Family history: Reviewed, noncontributory to presentation Physical examination: VITAL SIGNS: 98.8, 73, 17, 138.94, 98% room air GENERAL: Extending in bed, comfortable, EYES: Pupils equal. Conjunctiva normal. HEENT: External appearance of nose and ears normal, oral cavity normal NECK: JVD not raised; masses not palpable. HEART: First and second heart sounds are normal; no edema. LUNGS: Respiratory rate normal; clear to auscultation. ABDOMEN: Soft, nontender, liver spleen not palpable, no masses palpable. PSYCH: Alert and oriented x3; mood and affect normal. INVESTIGATIONS, reviewed in the clinical context: June 17: Creatinine 1.07. Bicarb 29 WBC 22.7 hemoglobin 7.6 platelets 321 increased neutrophils potassium 4.4 BUN 33 creatinine 4.93 glucose 250 Lactic acid 4.7, CPK 242 UA protein 2+ ketones 1+ bilirubin 2+ Urine acetone negative Assessment and plan: -Acute kidney injury, likely prerenal from severe vomiting and dehydration: Improved IV fluids -Metabolic acidosis from acute kidney injury: Improved Given IV bicarbonate -Type II lactic acidosis from fluid deficit. Not sepsis -Hypercalcemia from dehydration IV fluids -Recreational marijuana use Consult again as the use of same -ADHD Patient takes Ritalin -Peptic ulcer disease Protonix. Follow-up with GI Disposition: Home Plan - Discharge Summary Discharge Rx Participant: No New Discharge Prescriptions: New Nicotine 14Mg/24Hr Patch [Habitrol] 1 patch TRANSDERM DAILY #14 patch Pantoprazole [Protonix] 40 mg PO AC-BID #60 tablet. Continue Venlafaxine HCl [Effexor XR] 150 mg PO DAILY Discharge Medication List Venlafaxine HCl [Effexor XR] 150 mg PO DAILY 06/15/21 [History] Nicotine 14Mg/24Hr Patch [Habitrol] 1 patch TRANSDERM DAILY #14 patch 06/17/21 [Rx] Pantoprazole [Protonix] 40 mg PO AC-BID #60 tablet. 06/17/21 [Rx] Follow up Appointment(s)/Referral(s): Mehnaz Chatman MD [STAFF PHYSICIAN] - 2 Weeks Joshua Simms MD [Primary Care Provider] - 07/03/21 10:00 am Ugo Stevenson DO [STAFF PHYSICIAN] - 2 Weeks Patient Instructions/Handouts: Nicotine (Absorbed through the skin), Pantoprazole (By mouth), Dehydration (DC), Acute Kidney Injury (DC), Acute Nausea and Vomiting (DC) Discharge Disposition: HOME SELF-CARE
[2021-06-18] MEDS ORDERED: ENOXAPARIN 40 MG/0.4 ML SYRINGE SQ SCH (09:00)
== END 2021-06-17 16:10 | disposition home or self-care (01) | DRG 683 ==
LOC: EC 07:52 → 5NMEDONC 09:16
PROVIDERS: ADMIT Hospitalist; ATTEND Hospitalist
DX: N17.9 Acute kidney failure, unspecified (principal); E87.1 Hypo-osmolality and hyponatremia; E87.2 Acidosis; F90.9 Attention-deficit hyperactivity disorder, unspecified type; F32.9 Major depressive disorder, single episode, unspecified; F17.210 Nicotine dependence, cigarettes, uncomplicated; E83.51 Hypocalcemia; E83.52 Hypercalcemia; E86.0 Dehydration; E86.1 Hypovolemia; K27.9 Peptic ulcer, site unspecified, unspecified as acute or chronic, without hemorrhage or perforation; Z79.899 Other long term (current) drug therapy; Z90.49 Acquired absence of other specified parts of digestive tract
CPT/HCPCS: 36415; 76770; 80053; 81001; 82009; 82550; 83605; 83690; 83735; 85025; 87086; 96361; 96374; 96375; 99285

== ENCOUNTER 2021-06-18 12:18 | Emergency (ER) | payer OTHER ==
[2021-06-18 12:22] VITALS: BP 180/125; PULSE 60; RESP 20; TEMP 97.7
[2021-06-18] MEDS ORDERED: SODIUM CHLORIDE 0.9% 1,000 ML IV STA (12:58)
[2021-06-18] MEDS ORDERED: HALOPERIDOL LACTATE 5 MG/ML 1 ML VIAL IVP STA (12:59)
[2021-06-18] MEDS ORDERED: FAMOTIDINE 20 MG/2 ML VIAL IV STA (12:59)
[2021-06-18 13:52] LABS: Basophils % (A) 1 %; Eosinophils # (A) 0.1 k/uL (0-0.7); Eosinophils % (A) 1 %; HCT 47.4 % (39.0-53.0); HGB 16.4 gm/dL (13.0-17.5); Lymphocytes # (A) 0.7 k/uL (1.0-4.8); Lymphocytes % (A) 9 %; MCH 31.6 pg (25.0-35.0); MCHC 34.6 g/dL (31.0-37.0); MCV 91.1 fL (80.0-100.0); Mean Platelet Volume 8.3; Monocytes # (A) 0.5 k/uL (0-1.0); Monocytes % (A) 6 %; Neutrophils # (A) 6.2 k/uL (1.3-7.7); Neutrophils % (A) 82 %; Platelet Count 258 k/uL (150-450); RDW 11.9 % (11.5-15.5); WBC 7.5 k/uL (3.8-10.6)
[2021-06-18 14:03] LABS: ALT 27 U/L (4-49); African American GFR (CKD) >90 (>60 ml/min/1.73 sqM); Albumin 5.4 g/dL (3.5-5.0); Anion Gap 15 mmol/L; Blood Urea Nitrogen 21 mg/dL (9-20); Calcium 10.4 mg/dL (8.4-10.2); Carbon Dioxide 27 mmol/L (22-30); Chloride 100 mmol/L (98-107); Glucose 112 mg/dL (74-99); Lipase 165 U/L (23-300); Non-African American GFR(CKD) >90 (>60 ml/min/1.73 sqM); Sodium 142 mmol/L (137-145); Total Bilirubin 1.5 mg/dL (0.2-1.3); Total Protein 8.4 g/dL (6.3-8.2)
[2021-06-18 14:14] LABS: Magnesium 2.4 mg/dL (1.6-2.3); Potassium 4.3 mmol/L (3.5-5.1)
[2021-06-18 14:15] LABS: AST 43 U/L (17-59); Alkaline Phosphatase 50 U/L (38-126)
--- NOTE | 2021-06-18 22:21 | ED ---
General Adult HPI - General Chief complaint: Nausea/Vomiting/Diarrhea Stated complaint: liver failure Time Seen by Provider: 06/18/21 12:33 Source: patient, RN notes reviewed, old records reviewed Mode of arrival: ambulatory Limitations: no limitations - History of Present Illness Initial comments: Patient is a 21-year-old male with past medical history remarkable for marijuana hyperemesis syndrome who recently was discharged after being found to be d ehydrated with a lactic acidosis presents emergency Department complaining of acute onset of nausea and vomiting as well as epigastric abdominal discomfort. This is similar to his prior episodes marijuana hyperemesis. He states he did not smoke any new marijuana. He was discharged home last night went home and began feeling better. This morning when he awoke he took his home medications, and shortly thereafter began having numerous episodes of nonbilious nonbloody emesis. He also endorses epigastric abdominal discomfort. Denies any chest pain, shortness of breath. Describes the epigastric abdominal discomfort as achy. It does not radiate. It is worse with emesis. He denies any fevers, chills, cough. He has no other acute complaints at this time. He denies any drug use or alcohol use. Denies any change in bowel movements or bowel habits. - Related Data Home Medications Medication Instructions Recorded Confirmed Venlafaxine HCl [Effexor XR] 150 mg PO DAILY 06/15/21 06/18/21 Methylphenidate HCl [Ritalin LA] 30 mg PO DAILY 06/18/21 06/18/21 ondansetron HCL [Zofran] 8 mg PO Q8H PRN 06/18/21 06/18/21 Previous Rx's Medication Instructions Recorded Nicotine 14Mg/24Hr Patch [Habitrol] 1 patch TRANSDERM DAILY #14 patch 06/17/21 Pantoprazole [Protonix] 40 mg PO AC-BID #60 tablet. 06/17/21 Allergies Allergy/AdvReac Type Severity Reaction Status Date / Time No Known Allergies Allergy Verified 06/18/21 12:22 Review of Systems ROS Statement: Those systems with pertinent positive or pertinent negative responses have been documented in the HPI. Review of Systems: CONST: Denies fever EYES: Denies blurry vision ENT: Denies nasal congestion C/V: Denies Chest pain RESP: Denies shortness of breath GI: Endorses abdominal pain, nausea : Denies dysuria SKIN: Denies rash. MSK: Denies joint pain. NEURO: Denies headache ROS Other: All systems not noted in ROS Statement are negative. Past Medical History Past Medical History: GI Bleed Additional Past Medical History / Comment(s): ulcer, chs, kidney failure History of Any Multi-Drug Resistant Organisms: None Reported Past Surgical History: Appendectomy Past Anesthesia/Blood Transfusion Reactions: No Reported Reaction Past Psychological History: Depression Smoking Status: Current every day smoker Past Alcohol Use History: Occasional Past Drug Use History: Marijuana - Past Family History Mother Family Medical History: No Reported History General Exam - General Exam Comments Initial Comments: General: Appears in moderate distress secondary to active nausea and vomiting. HEAD: Normal with no signs of head trauma. EYES: PERRLA, EOMI, conjunctiva normal, no discharge. ENT: Hearing grossly intact, normal oropharynx. RESPIRATORY: Clear breath sounds bilaterally. No wheezes, rales, or rhonchi. C/V: Regular rate and rhythm. S1 and S2 auscultated, no edema, peripheral pulses 2+ and intact throughout ABD: Abdomen soft, nondistended. Patient is mildly tender to palpation in epigastric region. There is no guarding. There are no peritoneal signs. There is no rebound tenderness. Davis sign is negative. EXT: Normal range of motion, no obvious deformity SKIN: No rashes or lesions observed on exposed skin. NEURO: Alert and oriented 4. Limitations: no limitations Course Vital Signs 06/18/21 12:18 Temperature 97.7 F Pulse Rate 60 Respiratory 20 Rate Blood Pressure 180/125 O2 Sat by Pulse 100 Oximetry Medical Decision Making - Medical Decision Making Based on the patient's presentation and physical exam, do believe he is likely experiencing an exacerbation of his marijuana hyperemesis syndrome. We will obtain abdominal laboratory studies and symptomatically treat the patient with a 1 L fluid bolus, IV Haldol, IV famotidine. I will also obtain an EKG to evaluate the patient's QT interval. Patient was in agreement this plan. Patient's QT interval is within normal limits. Laboratory studies are unremarkable, including normal renal function, as well as normal potassium. L abs otherwise are unremarkable. On reevaluation, patient is feeling improved. He has tolerated by mouth intake. His abdominal pain and nausea and vomiting of resolved. I do believe it is safe for him to be discharged home at this time with follow-up with his PCP. He was in agreement this plan. Patient already has antinausea medications at home as he was just discharged yesterday. I instructed the patient to follow up with their PCP in the next 3 days. . I explained that the patient should return to the emergency department if they experience any worsening symptoms. Strict return precautions were discussed with the patient. The patient expressed understanding of these instructions. I answered all questions that the patient had. The patient was discharged home in good condition with their prescriptions and follow up information. - Lab Data Result diagrams: 06/18/21 13:32 06/18/21 13:32 Lab Results 06/18/21 06/18/21 Range/Units 13:32 13:32 WBC 7.5 (3.8-10.6) k/uL RBC 5.20 (4.30-5.90) m/uL Hgb 16.4 (13.0-17.5) gm/dL Hct 47.4 (39.0-53.0) % MCV 91.1 (80.0-100.0) fL MCH 31.6 (25.0-35.0) pg MCHC 34.6 (31.0-37.0) g/dL RDW 11.9 (11.5-15.5) % Plt Count 258 (150-450) k/uL MPV 8.3 Neutrophils % 82 % Lymphocytes % 9 % Monocytes % 6 % Eosinophils % 1 % Basophils % 1 % Neutrophils # 6.2 (1.3-7.7) k/uL Lymphocytes # 0.7 L (1.0-4.8) k/uL Monocytes # 0.5 (0-1.0) k/uL Eosinophils # 0.1 (0-0.7) k/uL Basophils # 0.0 (0-0.2) k/uL Sodium 142 (137-145) mmol/L Potassium 4.3 (3.5-5.1) mmol/L Chloride 100 (98-107) mmol/L Carbon Dioxide 27 (22-30) mmol/L Anion Gap 15 mmol/L BUN 21 H (9-20) mg/dL Creatinine 1.12 (0.66-1.25) mg/dL Est GFR (CKD-EPI)AfAm >90 (>60 ml/min/1.73 sqM) Est GFR (CKD-EPI)NonAf >90 (>60 ml/min/1.73 sqM) Glucose 112 H (74-99) mg/dL Calcium 10.4 H (8.4-10.2) mg/dL Magnesium 2.4 H (1.6-2.3) mg/dL Total Bilirubin 1.5 H (0.2-1.3) mg/dL AST 43 (17-59) U/L ALT 27 (4-49) U/L Alkaline Phosphatase 50 (38-126) U/L Total Protein 8.4 H (6.3-8.2) g/dL Albumin 5.4 H (3.5-5.0) g/dL Lipase 165 (23-300) U/L - EKG Data -: EKG Interpreted by Me EKG Comments: 12-lead Electrocardiogram Interpretation Note EKG was reviewed and interpreted by myself. 12-lead ECG performed at 1325 is interpreted by me as revealing normal sinus rhythm at a rate of 60 beats per minute. Right axis deviation. I suspect lead reversal.. There were no ST or T wave abnormalities to suggest myocardial ischemia or injury. There is isolated J-point elevation in lead V2. R wave progression across the precordium was satisfactory. By my interpretation this EKG is non-diagnostic for acute is chemia. Due to the possible lead reversal on the initial EKG, it was repeated. 12-lead Electrocardiogram Interpretation Note EKG was reviewed and interpreted by myself. 12-lead ECG performed at 1328 is interpreted by me as revealing normal sinus rhythm at a rate of 63 beats per minute. Elsie is normal. MI interval is 108 ms, QRS duration is 92 ms, QTc is 435 ms.. There were no ST or T wave abnormalities to suggest myocardial ischemia or injury. Isolated J-point elevations once again demonstrated in lead V2. R wave progression across the precordium was satisfactory. By my interpretation this EKG is non-diagnostic for acute ischemia. Disposition Clinical Impression: Nausea and vomiting, Abdominal pain of unknown cause Disposition: HOME SELF-CARE Condition: Good Instructions (If sedation given, give patient instructions): Acute Nausea and Vomiting (ED) Is patient prescribed a controlled substance at d/c from ED?: No Referrals: Joshua Simms MD [Primary Care Provider] - 1-2 days
== END 2021-06-18 15:31 | disposition home or self-care (01) ==
LOC: EC 12:18
DX: R11.2 Nausea with vomiting, unspecified (principal); R10.13 Epigastric pain; F32.9 Major depressive disorder, single episode, unspecified; F17.200 Nicotine dependence, unspecified, uncomplicated; Z79.899 Other long term (current) drug therapy
CPT/HCPCS: 36415; 93005; 80053; 83690; 83735; 85025; 99284; 96374; 96375; 96361; J1630

== ENCOUNTER 2021-06-19 11:59 | Emergency (ER) | payer OTHER ==
[2021-06-19 12:06] VITALS: TEMP 98.1
[2021-06-19] MEDS ORDERED: SODIUM CHLORIDE 0.9% 1,000 ML IV STA (12:15)
[2021-06-19] MEDS ORDERED: ONDANSETRON 4 MG/2 ML VIAL IVP STA (12:16)
[2021-06-19] MEDS ORDERED: LORazepam 2 MG/ML INJ IV STA (12:28)
--- NOTE | 2021-06-19 12:33 | ED ---
General Adult HPI - General Chief complaint: Nausea/Vomiting/Diarrhea Stated complaint: revisit - vomiting Time Seen by Provider: 06/19/21 12:11 Source: patient Mode of arrival: ambulatory Limitations: no limitations - History of Present Illness Initial comments: Dictation was produced using [employer] dictation software. please excuse any grammatical, word or spelling errors. Chief Complaint: 21-year-old male presents with persistent nausea and vomiting History of Present Illness: 21-year-old male he was recently admitted to the [facility] for acute kidney injury secondary to prerenal azotemia. Patient was admitted 4 days ago and was just discharged yesterday. States that he went home so had continued nausea and vomiting. He was told to patient that his symptoms are secondary to cannabis hyperemesis syndrome. Patient has not had any marijuana products for the last 6 days. Patient denies any fever. No abdominal pain. His emesis is nonbilious not bloody. No diarrhea. The ROS documented in this emergency department record has been reviewed and confirmed by me. Those systems with pertinent positive or negative responses have been documented in the HPI. All other systems are other negative and/or noncontributory. PHYSICAL EXAM: General Impression: Alert and oriented x3, not in acute distress HEENT: Normocephalic atraumatic, extra-ocular movements intact, pupils equal and reactive to light bilaterally, dry mucous membranes Cardiovascular: Heart regular rate and rhythm Chest: Able to complete full sentences, no retractions, no tachypnea Abdomen: abdomen soft, non-tender, non-distended, no organomegaly Musculoskeletal: Pulses present and equal in all extremities, no peripheral edema Motor: no focal deficits noted Neurological: CN II-XII grossly intact, no focal motor or sensory deficits noted Skin: Intact with no visualized rashes Psych: Normal affect and mood ED course: 1-year-old male presents with persistent nausea and vomiting. He was recently admitted and discharged just yesterday. When he was admitted 4 days ago he had a creatinine of 4.93 vital signs upon arrival are within except limi ts per chart review was performed. Patient was evaluated by nephrology. His creatinine improves with hydration while he was hospitalized. Laboratory evaluation obtained. CBC is unremarkable. Metabolic panel was obtained. Crit is 1.52. Rest metabolic panel is within acceptable limits. Patient reevaluated bedside after given fluids, Ativan and antiemetics with improvement of symptoms. Disposition options were discussed. His with his mother. They're agreeable to discharge with prescription for antiemetics and a few pills of Ativan for nausea control. They understand that they should return to the emergency department if he has poor oral intake for concerns of acute kidney injury again. Advised follow-up with primary care doctor for outpatient management of symptoms. EKG interpretation: Ventricular rate 66, normal sinus rhythm,. 134, QRS 94, QTC 408. No CO prolongation, no QTC prolongation, no ST or T-wave changes noted. Overall, this EKG is unremarkable - Related Data Home Medications Medication Instructions Recorded Confirmed Venlafaxine HCl [Effexor XR] 150 mg PO DAILY 06/15/21 06/18/21 Methylphenidate HCl [Ritalin LA] 30 mg PO DAILY 06/18/21 06/18/21 ondansetron HCL [Zofran] 8 mg PO Q8H PRN 06/18/21 06/18/21 Previous Rx's Medication Instructions Recorded Nicotine 14Mg/24Hr Patch [Habitrol] 1 patch TRANSDERM DAILY #14 patch 06/17/21 Pantoprazole [Protonix] 40 mg PO AC-BID #60 tablet. 06/17/21 LORazepam [Ativan] 0.5 mg PO HS PRN 3 Days #3 tab 06/19/21 Ondansetron Odt [Zofran Odt] 8 mg PO Q8HR PRN #32 tab 06/19/21 Allergies Allergy/AdvReac Type Severity Reaction Status Date / Time No Known Allergies Allergy Verified 06/19/21 12:03 Review of Systems ROS Statement: Those systems with pertinent positive or pertinent negative responses have been documented in the HPI. ROS Other: All systems not noted in ROS Statement are negative. Past Medical History Past Medical History: GI Bleed Additional Past Medical History / Comment(s): ulcer, chs, kidney failure History of Any Multi-Drug Resistant Organisms: None Reported Past Surgical History: Appendectomy Past Anesthesia/Blood Transfusion Reactions: No Reported Reaction Past Psychological History: Depression Smoking Status: Former smoker Past Alcohol Use History: Occasional Past Drug Use History: Marijuana - Past Family History Mother Family Medical History: No Reported History General Exam Limitations: no limitations Course Vital Signs 06/19/21 12:03 Temperature 98.1 F Pulse Rate 82 Respiratory 16 Rate Blood Pressure 178/98 O2 Sat by Pulse 94 L Oximetry Medical Decision Making - Lab Data Result diagrams: 06/19/21 12:44 06/19/21 12:44 Lab Results 06/19/21 06/19/21 06/19/21 Range/Units 12:44 12:44 12:44 WBC 6.9 (3.8-10.6) k/uL RBC 5.35 (4.30-5.90) m/uL Hgb 16.7 (13.0-17.5) gm/dL Hct 47.8 (39.0-53.0) % MCV 89.3 (80.0-100.0) fL MCH 31.2 (25.0-35.0) pg MCHC 34.9 (31.0-37.0) g/dL RDW 11.7 (11.5-15.5) % Plt Count 269 (150-450) k/uL MPV 7.9 Neutrophils % 77 % Lymphocytes % 11 % Monocytes % 7 % Eosinophils % 1 % Basophils % 1 % Neutrophils # 5.3 (1.3-7.7) k/uL Lymphocytes # 0.8 L (1.0-4.8) k/uL Monocytes # 0.5 (0-1.0) k/uL Eosinophils # 0.1 (0-0.7) k/uL Basophils # 0.1 (0-0.2) k/uL Sodium 140 (137-145) mmol/L Potassium 4.0 (3.5-5.1) mmol/L Chloride 100 (98-107) mmol/L Carbon Dioxide 24 (22-30) mmol/L Anion Gap 16 mmol/L BUN 22 H (9-20) mg/dL Creatinine 1.52 H (0.66-1.25) mg/dL Est GFR (CKD-EPI)AfAm 75 (>60 ml/min/1.73 sqM) Est GFR (CKD-EPI)NonAf 65 (>60 ml/min/1.73 sqM) Glucose 110 H (74-99) mg/dL Plasma Lactic Acid Dixon 1.1 (0.7-2.0) mmol/L Calcium 10.8 H (8.4-10.2) mg/dL Magnesium 2.5 H (1.6-2.3) mg/dL Disposition Clinical Impression: Nausea & vomiting Disposition: HOME SELF-CARE Condition: Fair Instructions (If sedation given, give patient instructions): Acute Nausea and Vomiting (ED) Prescriptions: LORazepam [Ativan] 0.5 mg PO HS PRN 3 Days #3 tab PRN Reason: Nausea Ondansetron Odt [Zofran Odt] 8 mg PO Q8HR PRN #32 tab PRN Reason: Nausea Is patient prescribed a controlled substance at d/c from ED?: Yes Referrals: Joshua Simms MD [Primary Care Provider] - 1-2 days
[2021-06-19 12:51] LABS: Basophils # (A) 0.1 k/uL (0-0.2); Basophils % (A) 1 %; Eosinophils # (A) 0.1 k/uL (0-0.7); Eosinophils % (A) 1 %; HCT 47.8 % (39.0-53.0); HGB 16.7 gm/dL (13.0-17.5); Lymphocytes # (A) 0.8 k/uL (1.0-4.8); Lymphocytes % (A) 11 %; MCH 31.2 pg (25.0-35.0); MCHC 34.9 g/dL (31.0-37.0); MCV 89.3 fL (80.0-100.0); Mean Platelet Volume 7.9; Monocytes # (A) 0.5 k/uL (0-1.0); Monocytes % (A) 7 %; Neutrophils # (A) 5.3 k/uL (1.3-7.7); Neutrophils % (A) 77 %; Platelet Count 269 k/uL (150-450); RBC 5.35 m/uL (4.30-5.90); RDW 11.7 % (11.5-15.5); WBC 6.9 k/uL (3.8-10.6)
[2021-06-19 13:00] LABS: Calcium 10.8 mg/dL (8.4-10.2); Magnesium 2.5 mg/dL (1.6-2.3)
[2021-06-19 14:15] VITALS: BP 132/78; PULSE 80; RESP 18
== END 2021-06-19 14:15 | disposition home or self-care (01) ==
LOC: EC 11:59
DX: R11.2 Nausea with vomiting, unspecified (principal); F32.9 Major depressive disorder, single episode, unspecified; F12.90 Cannabis use, unspecified, uncomplicated; Z87.891 Personal history of nicotine dependence; Z79.899 Other long term (current) drug therapy
CPT/HCPCS: 36415; 93005; 80048; 83605; 83735; 85025; 99284; 96374; 96375; 96361; J2060; J2405

== ENCOUNTER 2021-06-21 22:29 | Observation (INO) | payer OTHER ==
--- NOTE | 2021-06-21 23:18 | ED ---
Recheck HPI - General Chief Complaint: Nausea/Vomiting/Diarrhea Stated Complaint: Revisit Vomiting Time Seen by Provider: 06/21/21 23:16 Source: patient, RN notes reviewed Mode of arrival: ambulatory Limitations: no limitations - History of Present Illness Initial Comments: This is a 21-year-old male to the ER for evaluation patient presents with persis tent nausea and vomiting. Symptoms began apparently after work need some [employer]. Patient presents today for evaluation of persistent vomiting, weakness, dehydration. He does have history of similar events multiple ER visits this month for the same MD Complaint: abnormal lab -: hour(s) Returns Today for: persistent/worsening pain related to initial visit Symptoms Since Prior Visit: no new symptoms (Significantly persistent nausea and vomiting) Associated Symptoms: chills, malaise, nausea Treatments Prior to Arrival: other (Ativan) - Related Data Home Medications Medication Instructions Recorded Confirmed Venlafaxine HCl [Effexor XR] 150 mg PO DAILY 06/15/21 06/18/21 Methylphenidate HCl [Ritalin LA] 30 mg PO DAILY 06/18/21 06/18/21 ondansetron HCL [Zofran] 8 mg PO Q8H PRN 06/18/21 06/18/21 Previous Rx's Medication Instructions Recorded Nicotine 14Mg/24Hr Patch [Habitrol] 1 patch TRANSDERM DAILY #14 patch 06/17/21 Pantoprazole [Protonix] 40 mg PO AC-BID #60 tablet. 06/17/21 LORazepam [Ativan] 0.5 mg PO HS PRN 3 Days #3 tab 06/19/21 Ondansetron Odt [Zofran Odt] 8 mg PO Q8HR PRN #32 tab 06/19/21 Allergies Allergy/AdvReac Type Severity Reaction Status Date / Time No Known Allergies Allergy Verified 06/19/21 12:03 Review of Systems ROS Statement: Those systems with pertinent positive or pertinent negative responses have been documented in the HPI. ROS Other: All systems not noted in ROS Statement are negative. Past Medical History Past Medical History: GI Bleed Additional Past Medical History / Comment(s): ulcer, chs, kidney failure History of Any Multi-Drug Resistant Organisms: None Reported Past Surgical History: Appendectomy Past Anesthesia/Blood Transfusion Reactions: No Reported Reaction Past Psychological History: Depression Smoking Status: Former smoker Past Alcohol Use History: Occasional Past Drug Use History: Marijuana - Past Family History Mother Family Medical History: No Reported History General Exam Limitations: no limitations General appearance: alert, in no apparent distress Head exam: Present: atraumatic, normocephalic, normal inspection Eye exam: Present: normal appearance, PERRL, EOMI. Absent: scleral icterus, conjunctival injection, periorbital swelling ENT exam: Present: normal exam, mucous membranes moist Neck exam: Present: normal inspection. Absent: tenderness, meningismus, lymphadenopathy Respiratory exam: Present: normal lung sounds bilaterally. Absent: respiratory distress, wheezes, rales, rhonchi, stridor Cardiovascular Exam: Present: regular rate, normal rhythm, normal heart sounds. Absent: systolic murmur, diastolic murmur, rubs, gallop, clicks GI/Abdominal exam: Present: soft, normal bowel sounds. Absent: distended, tenderness, guarding, rebound, rigid Extremities exam: Present: normal inspection, full ROM, normal capillary refill. Absent: tenderness, pedal edema, joint swelling, calf tenderness Back exam: Present: normal inspection Neurological exam: Present: alert, oriented X3, CN II-XII intact Psychiatric exam: Present: normal affect, normal mood Skin exam: Present: warm, dry, intact, normal color. Absent: rash Course Vital Signs 06/21/21 06/22/21 22:49 01:16 Temperature 98.0 F Pulse Rate 86 80 Respiratory 18 16 Rate Blood Pressure 153/122 159/103 O2 Sat by Pulse 99 98 Oximetry - Reevaluation(s) Reevaluation #1: 06/22/21 02:06 Medical record is reviewed 06/22/21 02:06 Prior ER visits are reviewed Reevaluation #2: 06/22/21 02:06 Patient is resting comfortably symptoms are improved Reevaluation #3: 06/22/21 02:06 Spoke with patient and family regarding results and findings, questions answered Medical Decision Making - Medical Decision Making 21 male to the ER with persistent nausea and vomiting, anion gap medical acidosis of severe dehydration. Patient will be admitted symptom management and resuscitation - Lab Data Result diagrams: 06/22/21 00:09 06/22/21 00:09 Lab Results 06/22/21 06/22/21 06/22/21 Range/Units 00:09 00:09 00:09 WBC 10.3 (3.8-10.6) k/uL RBC 5.03 (4.30-5.90) m/uL Hgb 15.5 (13.0-17.5) gm/dL Hct 45.4 (39.0-53.0) % MCV 90.3 (80.0-100.0) fL MCH 30.9 (25.0-35.0) pg MCHC 34.2 (31.0-37.0) g/dL RDW 11.7 (11.5-15.5) % Plt Count 297 (150-450) k/uL MPV 7.9 Neutrophils % 84 % Lymphocytes % 8 % Monocytes % 5 % Eosinophils % 1 % Basophils % 0 % Neutrophils # 8.7 H (1.3-7.7) k/uL Lymphocytes # 0.8 L (1.0-4.8) k/uL Monocytes # 0.5 (0-1.0) k/uL Eosinophils # 0.1 (0-0.7) k/uL Basophils # 0.0 (0-0.2) k/uL Sodium 139 (137-145) mmol/L Potassium 4.2 (3.5-5.1) mmol/L Chloride 101 (98-107) mmol/L Carbon Dioxide 20 L (22-30) mmol/L Anion Gap 18 mmol/L BUN 21 H (9-20) mg/dL Creatinine 1.08 (0.66-1.25) mg/dL Est GFR (CKD-EPI)AfAm >90 (>60 ml/min/1.73 sqM) Est GFR (CKD-EPI)NonAf >90 (>60 ml/min/1.73 sqM) Glucose 106 H (74-99) mg/dL Plasma Lactic Acid Dixon (0.7-2.0) mmol/L Calcium 10.0 (8.4-10.2) mg/dL Phosphorus 3.4 (2.5-4.5) mg/dL Magnesium 2.2 (1.6-2.3) mg/dL Total Bilirubin 1.1 (0.2-1.3) mg/dL AST 25 (17-59) U/L ALT 23 (4-49) U/L Alkaline Phosphatase 54 (38-126) U/L Creatine Kinase 139 (55-170) U/L Troponin I (0.000-0.034) ng/mL Total Protein 7.7 (6.3-8.2) g/dL Albumin 5.2 H (3.5-5.0) g/dL Lipase 127 (23-300) U/L Urine Color Yellow Urine Appearance Clear (Clear) Urine pH 5.5 (5.0-8.0) Ur Specific [place] 1.037 H (1.001-1.035) Urine Protein 1+ H (Negative) Urine Glucose (UA) Negative (Negative) Urine Ketones 3+ H (Negative) Urine Blood Negative (Negative) Urine Nitrite Negative (Negative) Urine Bilirubin Negative (Negative) Urine Urobilinogen <2.0 (<2.0) mg/dL Ur Leukocyte Esterase Negative (Negative) Urine RBC <1 (0-5) /hpf Urine WBC 3 (0-5) /hpf Hyaline Casts 1 (0-2) /lpf Urine Mucus Moderate H (None) /hpf Urine Opiates Screen (NotDetected) Ur Oxycodone Screen (NotDetected) Urine Methadone Screen (NotDetected) Ur Propoxyphene Screen (NotDetected) Ur Barbiturates Screen (NotDetected) U Tricyclic Antidepress (NotDetected) Ur Phencyclidine Scrn (NotDetected) Ur Amphetamines Screen (NotDetected) U Methamphetamines Scrn (NotDetected) U Benzodiazepines Scrn (NotDetected) Urine Cocaine Screen (NotDetected) U Marijuana (THC) Screen (NotDetected) Serum Alcohol <10 mg/dL Acetone, Qual Positive (Negative) 06/22/21 06/22/21 06/22/21 Range/Units 00:09 00:09 00:09 WBC (3.8-10.6) k/uL RBC (4.30-5.90) m/uL Hgb (13.0-17.5) gm/dL Hct (39.0-53.0) % MCV (80.0-100.0) fL MCH (25.0-35.0) pg MCHC (31.0-37.0) g/dL RDW (11.5-15.5) % Plt Count (150-450) k/uL MPV Neutrophils % % Lymphocytes % % Monocytes % % Eosinophils % % Basophils % % Neutrophils # (1.3-7.7) k/uL Lymphocytes # (1.0-4.8) k/uL Monocytes # (0-1.0) k/uL Eosinophils # (0-0.7) k/uL Basophils # (0-0.2) k/uL Sodium (137-145) mmol/L Potassium (3.5-5.1) mmol/L Chloride (98-107) mmol/L Carbon Dioxide (22-30) mmol/L Anion Gap mmol/L BUN (9-20) mg/dL Creatinine (0.66-1.25) mg/dL Est GFR (CKD-EPI)AfAm (>60 ml/min/1.73 sqM) Est GFR (CKD-EPI)NonAf (>60 ml/min/1.73 sqM) Glucose (74-99) mg/dL Plasma Lactic Acid Dixon 2.0 (0.7-2.0) mmol/L Calcium (8.4-10.2) mg/dL Phosphorus (2.5-4.5) mg/dL Magnesium (1.6-2.3) mg/dL Total Bilirubin (0.2-1.3) mg/dL AST (17-59) U/L ALT (4-49) U/L Alkaline Phosphatase (38-126) U/L Creatine Kinase (55-170) U/L Troponin I <0.012 (0.000-0.034) ng/mL Total Protein (6.3-8.2) g/dL Albumin (3.5-5.0) g/dL Lipase (23-300) U/L Urine Color Urine Appearance (Clear) Urine pH (5.0-8.0) Ur Specific [place] (1.001-1.035) Urine Protein (Negative) Urine Glucose (UA) (Negative) Urine Ketones (Negative) Urine Blood (Negative) Urine Nitrite (Negative) Urine Bilirubin (Negative) Urine Urobilinogen (<2.0) mg/dL Ur Leukocyte Esterase (Negative) Urine RBC (0-5) /hpf Urine WBC (0-5) /hpf Hyaline Casts (0-2) /lpf Urine Mucus (None) /hpf Urine Opiates Screen Not Detected (NotDetected) Ur Oxycodone Screen Not Detected (NotDetected) Urine Methadone Screen Not Detected (NotDetected) Ur Propoxyphene Screen Not Detected (NotDetected) Ur Barbiturates Screen Not Detected (NotDetected) U Tricyclic Antidepress Not Detected (NotDetected) Ur Phencyclidine Scrn Not Detected (NotDetected) Ur Amphetamines Screen Not Detected (NotDetected) U Methamphetamines Scrn Not Detected (NotDetected) U Benzodiazepines Scrn Detected H (NotDetected) Urine Cocaine Screen Not Detected (NotDetected) U Marijuana (THC) Screen Detected H (NotDetected) Serum Alcohol mg/dL Acetone, Qual (Negative) - EKG Data -: EKG Interpreted by Me (EKG is sinus rhythm 85 AR 126 QRS 86 QTc 440) Disposition Clinical Impression: Dehydration, Nausea & vomiting, High anion gap metabolic acidosis Disposition: ADMITTED IP TO THIS HOSP Condition: Fair Is patient prescribed a controlled substance at d/c from ED?: No Referrals: Joshua Simms MD [Primary Care Provider] - 1-2 days
[2021-06-22] MEDS ORDERED: ONDANSETRON 4 MG/2 ML VIAL IVP STA (00:04)
[2021-06-22] MEDS ORDERED: SODIUM CHLORIDE 0.9% 1,000 ML IV STA ×3 (00:04→02:01)
[2021-06-22] MEDS ORDERED: diphenhydrAMINE 50 MG/ML 1 ML VIAL IVP STA (00:07)
[2021-06-22] MEDS ORDERED: METOCLOPRAMIDE 5 MG/ML 2 ML VIAL IVP STA (00:07)
[2021-06-22] MEDS ORDERED: LORazepam 2 MG/ML INJ IV STA (00:27)
[2021-06-22 00:35] LABS: Basophils % (A) 0 %; Eosinophils # (A) 0.1 k/uL (0-0.7); Eosinophils % (A) 1 %; HCT 45.4 % (39.0-53.0); HGB 15.5 gm/dL (13.0-17.5); Lymphocytes # (A) 0.8 k/uL (1.0-4.8); Lymphocytes % (A) 8 %; MCH 30.9 pg (25.0-35.0); MCHC 34.2 g/dL (31.0-37.0); MCV 90.3 fL (80.0-100.0); Mean Platelet Volume 7.9; Monocytes # (A) 0.5 k/uL (0-1.0); Monocytes % (A) 5 %; Neutrophils # (A) 8.7 k/uL (1.3-7.7); Neutrophils % (A) 84 %; Platelet Count 297 k/uL (150-450); RBC 5.03 m/uL (4.30-5.90); RDW 11.7 % (11.5-15.5); WBC 10.3 k/uL (3.8-10.6)
[2021-06-22 01:02] LABS: Appearance,Urine Clear (Clear); Bilirubin,Urine Negative (Negative); Blood,Urine Negative (Negative); Color,Urine Yellow; Glucose,Urine (UA) Negative (Negative); Hyaline Casts,Urine 1 /lpf (0-2); Ketones,Urine 3+ (Negative); Leukocyte Esterase,Urine Negative (Negative); Mucus,Urine Moderate /hpf; Nitrite,Urine Negative (Negative); PH, Urine 5.5 (5.0-8.0); Protein,Urine 1+ (Negative); RBC,Urine <1 /hpf (0-5); Specific Gravity,Urine 1.037 (1.001-1.035); Urobilinogen,Urine <2.0 mg/dL (<2.0); WBC,Urine 3 /hpf (0-5)
[2021-06-22 01:09] LABS: ALT 23 U/L (4-49); AST 25 U/L (17-59); African American GFR (CKD) >90 (>60 ml/min/1.73 sqM); Albumin 5.2 g/dL (3.5-5.0); Alcohol <10 mg/dL; Alkaline Phosphatase 54 U/L (38-126); Anion Gap 18 mmol/L; Blood Urea Nitrogen 21 mg/dL (9-20); Carbon Dioxide 20 mmol/L (22-30); Chloride 101 mmol/L (98-107); Creatine Kinase 139 U/L (55-170); Glucose 106 mg/dL (74-99); Lipase 127 U/L (23-300); Magnesium 2.2 mg/dL (1.6-2.3); Non-African American GFR(CKD) >90 (>60 ml/min/1.73 sqM); Phosphorus 3.4 mg/dL (2.5-4.5); Potassium 4.2 mmol/L (3.5-5.1); Sodium 139 mmol/L (137-145); Total Bilirubin 1.1 mg/dL (0.2-1.3); Total Protein 7.7 g/dL (6.3-8.2)
[2021-06-22 01:16] LABS: Amphetamine Screen,Urine Not Detected (NotDetected); Barbiturate Screen,Urine Not Detected (NotDetected); Benzodiazepines Screen,Urine Detected (NotDetected); Cocaine Screen,Urine Not Detected (NotDetected); Methadone Screen, Urine Not Detected (NotDetected); Opiate Screen,Urine Not Detected (NotDetected); Oxycodone Screen, Urine Not Detected (NotDetected); Phencyclidine Screen,Urine Not Detected (NotDetected); Tricyclic Antidepressant,Urine Not Detected (NotDetected); Urn Cannabinoid Scrn Detected (NotDetected)
[2021-06-22] MEDS ORDERED: NALOXONE 0.4 MG/ML 1 ML VIAL IV PRN (02:01)
[2021-06-22] MEDS ORDERED: SODIUM CHLORIDE 0.9% 2,000 ML IV STA (02:01)
[2021-06-22] MEDS: ONDANSETRON 4 MG/2 ML VIAL IVP PRN ×2 (09:29→16:34)
--- NOTE | 2021-06-22 15:01 | P.CONS ---
History of Present Illness - Reason for Consult Consult date: 06/22/21 Nausea and vomiting Requesting physician: Roshan Akbar - Chief Complaint Nausea and vomiting - History of Present Illness This is a 21-year-old white male who presented to the emergency department with complaints of intractable nausea and vomiting for the last 9 days duration. States that he has a history of cannabinoid hyperemesis and started smoking marijuana in 2016. He was seen several times in the emergency department for nausea and vomiting associated to his marijuana use. He subsequently quit smoking marijuana however started smoking again 1-2 months ago. He had a first episode of intractable nausea and vomiting had started a week ago Monday. He states that he vomited all night, and then has been vomiting every day 3-4 times a day. Monday he states he was feeling better had no nausea and vomiting and went to work on Monday and now [employer] following that he started having vomiting again. States he has been dry heaving, no blood or coffee-ground emesis. Today he denies any nausea or vomiting, he denies any abdominal pain. He has been tolerating ice chips. Review of Systems REVIEW OF SYSTEMS: CARDIOPULMONARY: No chest pain or shortness of breath. Gastrointestinal: No abdominal pain. Nausea and vomiting daily 3-4 times a day, began over a week ago. No hematemesis, coffee-ground emesis. No rectal bleeding, or melena. GENITOURINARY: No dysuria or hematuria. MUSCULOSKELETAL: Reports normal range of motion., Joint pain. SKIN: No rashes. No jaundice. ENDOCRINE: No chills, fevers. No excessive weight gain or loss. No polydipsia or polyuria. PSYCHIATRIC: Unremarkable. NEUROLOGY: No change in mental status. Denies dizziness, headache. ENT: Vision unremarkable. CONSTITUTIONAL: No recent weight loss. No fever, chills, night sweats. Past Medical History Past Medical History: GI Bleed Additional Past Medical History / Comment(s): ulcer, chs, kidney failure History of Any Multi-Drug Resistant Organisms: None Reported Past Surgical History: Appendectomy Past Anesthesia/Blood Transfusion Reactions: No Reported Reaction Past Psychological History: Depression Smoking Status: Former smoker Past Alcohol Use History: Occasional Past Drug Use History: Marijuana - Past Family History Mother Family Medical History: No Reported History Medications and Allergies Home Medications Medication Instructions Recorded Confirmed Type Venlafaxine HCl [Effexor XR] 150 mg PO DAILY 06/15/21 06/22/21 History Nicotine 14Mg/24Hr Patch [Habitrol] 1 patch TRANSDERM DAILY #14 patch 06/17/21 06/22/21 Rx Pantoprazole [Protonix] 40 mg PO AC-BID #60 tablet. 06/17/21 06/22/21 Rx Methylphenidate HCl [Ritalin LA] 30 mg PO DAILY 06/18/21 06/22/21 History LORazepam [Ativan] 0.5 mg PO HS PRN 3 Days #3 tab 06/19/21 06/22/21 Rx Ondansetron Odt [Zofran Odt] 8 mg PO Q8HR PRN #32 tab 06/19/21 06/22/21 Rx Allergies Allergy/AdvReac Type Severity Reaction Status Date / Time No Known Allergies Allergy Verified 06/22/21 07:16 Physical Exam Vitals: Vital Signs Temp Pulse Resp BP Pulse Ox 06/22/21 09:00 98 F 70 18 152/91 100 06/22/21 02:57 82 16 117/69 98 06/22/21 01:16 80 16 159/103 98 06/21/21 22:49 98.0 F 86 18 153/122 99 Intake and Output 06/21/21 06/22/21 06/22/21 22:59 06:59 14:59 Other: Weight 81.647 kg General appearance: The patient is alert, oriented, appears in no acute distress. HET: Head is normocephalic and atraumatic. Conjunctiva pink. Sclera anicteric. Neck: Supple without lymphadenopathy. Trachea midline. Heart: S1 S2. Regular rate and rhythm. Lungs: Clear to auscultation. Abdomen: Soft, nontender, nondistended with bowel sounds. No guarding or rigidity. Skin: No rashes. No jaundice. Extremities: Normal skin color and turgor. No pedal edema. Neurological: No focal deficits. Alert and oriented 3.. Results CBC & Chem 7: 06/22/21 00:09 06/22/21 00:09 Labs: Abnormal Lab Results - Last 24 Hours (Table) 06/22/21 06/22/21 06/22/21 Range/Units 00:09 00:09 00:09 Neutrophils # 8.7 H (1.3-7.7) k/uL Lymphocytes # 0.8 L (1.0-4.8) k/uL Carbon Dioxide 20 L (22-30) mmol/L BUN 21 H (9-20) mg/dL Glucose 106 H (74-99) mg/dL Albumin 5.2 H (3.5-5.0) g/dL Ur Specific [place] 1.037 H (1.001-1.035) Urine Protein 1+ H (Negative) Urine Ketones 3+ H (Negative) Urine Mucus Moderate H (None) /hpf U Benzodiazepines Scrn (NotDetected) U Marijuana (THC) Screen (NotDetected) 06/22/21 Range/Units 00:09 Neutrophils # (1.3-7.7) k/uL Lymphocytes # (1.0-4.8) k/uL Carbon Dioxide (22-30) mmol/L BUN (9-20) mg/dL Glucose (74-99) mg/dL Albumin (3.5-5.0) g/dL Ur Specific [place] (1.001-1.035) Urine Protein (Negative) Urine Ketones (Negative) Urine Mucus (None) /hpf U Benzodiazepines Scrn Detected H (NotDetected) U Marijuana (THC) Screen Detected H (NotDetected) Assessment and Plan (1) Nausea & vomiting Narrative/Plan: 21-year-old male with a past medical history of cannabinoid hyperemesis syndrome presented to the emergency department with intractable nausea and vomiting began 9 days ago. Patient states he has had history of CHS and was smoking marijuana since 2017, however states he quit smoking after he had been seen several times in the emergency department for IV hydration and antiemetics. States he started smoking marijuana again about 1-2 months ago. States a week ago from this past Monday he started again with the nausea and vomiting which he states he vomited all night. He subsequently has had nausea and vomiting 4-5 times a day following. He presented to the emergency department was given IV hydration and sent home. However continued and yesterday he had to pull technique and after that and has not been able to stop vomiting. However today he states he has had no further nausea or vomiting, no abdominal pain. He denies any hematemesis or coffee-ground emesis. Again discussed with patient likely dealing with cannabinoid hyperemesis syndrome, advise abstinence from marijuana. Current Visit: Yes Status: Acute Code(s): R11.2 - NAUSEA WITH VOMITING, UNSPECIFIED SNOMED Code(s): 64925890 (2) Cannabinoid hyperemesis syndrome Current Visit: Yes Status: Acute Code(s): R11.2 - NAUSEA WITH VOMITING, UNSPECIFIED; F12.90 - CANNABIS USE, UNSPECIFIED, UNCOMPLICATED SNOMED Code(s): 359557195 Plan: 1. Advance to clear liquid diet, then advance as tolerated 2. Continue antiemetics as needed 3. Continue Protonix 4. Discussed importance of marijuana abstinence 5. Patient may be discharged home later today or tomorrow if he tolerates a regular diet Thank you for this consultation, we will continue to follow. Dr. Taqueria Chatman I agree with the dictator's note, documented as a scribe by Debra Ramos.
[2021-06-22 15:40] LABS: Hemoglobin A1C 4.6 % (4.0-6.0)
[2021-06-22] MEDS ORDERED: LORazepam 0.5 MG TAB PO PRN (18:07)
[2021-06-22] MEDS ORDERED: SODIUM CHLORIDE 0.9% 1,000 ML IV SCH (18:15)
[2021-06-22] MEDS: VENLAFAXINE HCL ER 150 MG CAP PO SCH (20:37)
[2021-06-22] MEDS: NICOTINE 14MG/24HR PATCH TRANSDERM SCH (21:23)
--- NOTE | 2021-06-22 22:23 | P.HPIM ---
History of Present Illness H&P Date: 06/22/21 Patient is a 21-year-old male with a known history of GI bleed, ulcer, recent history of admission with acute renal failure, previous history of smoking, depression, occasional marijuana use presents to ER with complaints of intractable nausea vomiting and epigastric abdominal pain for the past 1 week. Patient has been having vomiting leg and dry heaves. No hematemesis or melena. No chest pain or shortness of breath. No diarrhea or constipation. 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 Patient was seen in the emergency room several times due to episodes of nausea and abdominal pain. He subsequently quit smoking marijuana however start back again 1 to 2 months ago. EKG showed normal sinus rhythm Laboratory data showed sodium 139 potassium 4.2 chloride 101 bicarb is 20 BUN 21 and creatinine 01.08 WBC 10.3 hemoglobin 13.5 and platelets 297 Review of Systems Constitutional: Patient denies any fever or chills . No generalized weakness or weight loss. Abdomen: Patient odes nausea vomiting and abdominal pain. Cardiovascular: Patient denies any chest pain or short of breath no palpitations. Respiratory: patient denied any cough or sputum production. No shortness of breath Neurologic: Patient denied any numbness or tingling headache. Musculoskeletal: Patient denies any complaints of joint swelling or deformity. Skin: Negative Psychiatric: Negative Endocrine: No heat or cold intolerance. No recent weight gain. Genitourinary: No dysuria or hematuria. All other 14 point ROS negative except the above Past Medical History Past Medical History: GI Bleed Additional Past Medical History / Comment(s): ulcer, chs, kidney failure History of Any Multi-Drug Resistant Organisms: None Reported Past Surgical History: Appendectomy Past Anesthesia/Blood Transfusion Reactions: No Reported Reaction Past Psychological History: Depression Smoking Status: Former smoker Past Alcohol Use History: Occasional Past Drug Use History: Marijuana - Past Family History Mother Family Medical History: No Reported History Medications and Allergies Home Medications Medication Instructions Recorded Confirmed Type Venlafaxine HCl [Effexor XR] 150 mg PO DAILY 06/15/21 06/22/21 History Nicotine 14Mg/24Hr Patch [Habitrol] 1 patch TRANSDERM DAILY #14 patch 06/17/21 06/22/21 Rx Methylphenidate HCl [Ritalin LA] 30 mg PO DAILY 06/18/21 06/22/21 History LORazepam [Ativan] 0.5 mg PO HS PRN 3 Days #3 tab 06/19/21 06/22/21 Rx Ondansetron Odt [Zofran ODT] 8 mg PO Q8HR PRN #32 tab 06/19/21 06/22/21 Rx Pantoprazole [Protonix] 40 mg PO AC-BRKFST #30 tablet. 06/22/21 06/22/21 Rx Allergies Allergy/AdvReac Type Severity Reaction Status Date / Time No Known Allergies Allergy Verified 06/22/21 07:16 Physical Exam Vitals: Vital Signs Temp Pulse Resp BP Pulse Ox 06/22/21 09:00 98 F 70 18 152/91 100 06/22/21 02:57 82 16 117/69 98 06/22/21 01:16 80 16 159/103 98 06/21/21 22:49 98.0 F 86 18 153/122 99 Intake and Output 06/21/21 06/22/21 06/22/21 22:59 06:59 14:59 Intake Total 100 Balance 100 Intake: Oral 100 Other: Weight 81.647 kg PHYSICAL EXAMINATION: Patient is lying in the bed comfortably, no acute distress, awake alert and oriented.. HEENT: Normocephalic. Neck is supple. Pupils reactive. Nostrils clear. Oral cavity is moist. Neck reveals no JVD, carotid bruits, or thyromegaly. CHEST EXAMINATION: Trachea is central. Symmetrical expansion. Lung esuqivel clear to auscultation and percussion. CARDIAC: Normal S1, S2 with no gallops. No murmurs ABDOMEN: Soft. Bowel sounds normal. No organomegaly. No abdominal bruits. Extremities: reveal no edema. No clubbing or cyanosis Neurologically awake, alert, oriented x3 with well-coordinated movements. No focal deficits noted Skin: No rash or skin lesions. Psychiatric: Coperative. Nonsuicidal Musculoskeletal: No joint swelling or deformity. Normal range of motion. Results CBC & Chem 7: 06/22/21 00:09 06/22/21 00:09 Labs: Abnormal Lab Results - Last 24 Hours (Table) 06/22/21 06/22/21 06/22/21 Range/Units 00:09 00:09 00:09 Neutrophils # 8.7 H (1.3-7.7) k/uL Lymphocytes # 0.8 L (1.0-4.8) k/uL Carbon Dioxide 20 L (22-30) mmol/L BUN 21 H (9-20) mg/dL Glucose 106 H (74-99) mg/dL Albumin 5.2 H (3.5-5.0) g/dL Ur Specific [place] 1.037 H (1.001-1.035) Urine Protein 1+ H (Negative) Urine Ketones 3+ H (Negative) Urine Mucus Moderate H (None) /hpf U Benzodiazepines Scrn (NotDetected) U Marijuana (THC) Screen (NotDetected) 06/22/21 Range/Units 00:09 Neutrophils # (1.3-7.7) k/uL Lymphocytes # (1.0-4.8) k/uL Carbon Dioxide (22-30) mmol/L BUN (9-20) mg/dL Glucose (74-99) mg/dL Albumin (3.5-5.0) g/dL Ur Specific [place] (1.001-1.035) Urine Protein (Negative) Urine Ketones (Negative) Urine Mucus (None) /hpf U Benzodiazepines Scrn Detected H (NotDetected) U Marijuana (THC) Screen Detected H (NotDetected) Thrombosis Risk Factor Assmnt - DVT/VTE Prophylaxis DVT/VTE Prophylaxis: Pharmacologic Prophylaxis ordered Assessment and Plan Assessment: Intractable nausea vomiting and epigastric abdominal pain likely due to cannabinoid hyperemesis syndrome. History of marijuana use in 2017. Patient was able to quit and start back again in the last 2 months. Recent admission with acute kidney injury with creatinine level went up to 4. Improved Depression History of GI bleeding ulcers. DVT prophylaxis with early ambulation. Patient will be continued on IV hydration and symptomatic management for nausea and vomiting. Continue with PPI. Follow-up closely. Discussed with the patient and his mother and Counseled for marijuana abstinence.
[2021-06-23] MEDS ORDERED: ONDANSETRON 4 MG/2 ML VIAL ONE (00:32)
[2021-06-23 06:17] VITALS: TEMP 97.5
[2021-06-23] MEDS: NICOTINE 14MG/24HR PATCH TRANSDERM SCH (07:14)
[2021-06-23] MEDS: VENLAFAXINE HCL ER 150 MG CAP PO SCH (07:14)
[2021-06-23] MEDS ORDERED: PANTOPRAZOLE 40 MG TABLET PO SCH (07:30)
[2021-06-23 07:44] VITALS: BP 151/86; PULSE 81; RESP 17
--- NOTE | 2021-06-23 09:19 | P.PN ---
Subjective Progress Note Date: 06/23/21 Principal diagnosis: nausea/vomiting This is a 21-year-old male who presented to the emergency department with multiple days of nausea and vomiting associated with marijuana use. He has a history of cannabinoid hyperemesis syndrome with previous marijuana use, he quit for several months but dense repeat labs when they 2 months ago. Diet was advanced yesterday he had nausea but no vomiting. He did have a bowel movement yesterday which she states was loose. He denies any abdominal pain and no vomiting. Objective - Vital Signs Vital signs: Vital Signs Temp 97.5 F L 06/23/21 07:00 Pulse 81 06/23/21 07:00 Resp 17 06/23/21 07:00 BP 151/86 06/23/21 07:00 Pulse Ox 98 06/23/21 07:00 Intake & Output 06/22/21 06/23/21 06/23/21 18:59 06:59 18:59 Intake Total 400 180 Balance 400 180 Weight 81.647 kg Intake: Oral 400 180 Other: Voiding Method Toilet # Voids 2 - Exam General appearance: The patient is alert, oriented, appears in no acute distress. HET: Head is normocephalic and atraumatic. Conjunctiva pink. Sclera anicteric. Neck: Supple without lymphadenopathy. Abdomen: Soft, nontender, nondistended with bowel sounds. No guarding or rigidity. Extremities: Normal skin color and turgor. No pedal edema Skin: No rashes, no jaundice Neurological: No focal deficits. Alert and oriented 3. - Labs CBC & Chem 7: 06/22/21 00:09 06/22/21 00:09 Assessment and Plan (1) Nausea & vomiting Narrative/Plan: 21-year-old male with a past medical history of cannabinoid hyperemesis syndrome presented to the emergency department with intractable nausea and vomiting began 9 days ago. Patient states he has had history of CHS and was smoking marijuana since 2017, however states he quit smoking after he had been seen several times in the emergency department for IV hydration and antiemetics. States he started smoking marijuana again about 1-2 months ago. States a week ago from this past Monday he started again with the nausea and vomiting which he states he vomited all night. He subsequently has had nausea and vomiting 4-5 times a day following. He presented to the emergency department was given IV hydration and sent home. However continued and yesterday he had to pull technique and after that and has not been able to stop vomiting. However today he states he has had no further nausea or vomiting, no abdominal pain. He denies any hematemesis or coffee-ground emesis. Again discussed with patient likely dealing with cannabinoid hyperemesis syndrome, advise abstinence from marijuana. Current Visit: Yes Status: Acute Code(s): R11.2 - NAUSEA WITH VOMITING, UNSPECIFIED SNOMED Code(s): 10588624 (2) Cannabinoid hyperemesis syndrome Current Visit: Yes Status: Acute Code(s): R11.2 - NAUSEA WITH VOMITING, UNSPECIFIED; F12.90 - CANNABIS USE, UNSPECIFIED, UNCOMPLICATED SNOMED Code(s): 786361123 Plan: 1. Continue diet as tolerated 2. Continue antiemetics as needed 3. Continue Protonix 4. Discussed importance of marijuana abstinence 5. Discussed with patient diet as tolerated, small bland amounts of food at a time 6. Patient is cleared for discharge from gastroenterology Thank you for this consultation. Dr. Taqueria Chatman I agree with the dictator's note, documented as a scribe by Debra Ramos.
[2021-06-23] MEDS: ONDANSETRON 4 MG/2 ML VIAL IVP PRN (09:27)
--- NOTE | 2021-06-25 15:44 | P.DS ---
Providers Date of admission: 06/22/21 02:03 Expected date of discharge: 06/23/21 Attending physician: Roshan Akbar Consults: 06/22/21 02:02 Consult Physician Routine Consulting Provider: Yonatan Wu Consult Reason/Comments: nv Do you want consulting provider notified?: Yes Primary care physician: Joshua Simms [facility] Hospital Course: Final diagnosis Intractable nausea vomiting and epigastric abdominal pain likely due to cannabinoid hyperemesis syndrome. History of marijuana use in 2017. Patient was able to quit and started back again in the last 2 months. Recent admission with acute kidney injury with creatinine level went up to 4. Improved Depression History of GI bleeding ulcers. DVT prophylaxis Full code Discharge disposition Patient is being discharged in a stable condition with guarded prognosis to home. Patient will follow-up with Dr. Simms in the outpatient setting upon discharge. Patient is to also follow-up with GI Dr. Chatman in the outpatient setting. Total time taken is greater than 35 minutes. Hospital course Patient is a 21-year-old male with a known history of GI bleed, ulcer, recent history of admission with acute renal failure, previous history of smoking, depression, occasional marijuana use presents to ER with complaints of intractable nausea vomiting and epigastric abdominal pain for the past 1 week. Patient has been having vomiting leg and dry heaves. No hematemesis or melena. No chest pain or shortness of breath. No diarrhea or constipation. 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 Patient was seen in the emergency room several times due to episodes of nausea and abdominal pain. He subsequently quit smoking marijuana however start back again 1 to 2 months ago. EKG showed normal sinus rhythm Laboratory data showed sodium 139 potassium 4.2 chloride 101 bicarb is 20 BUN 21 and creatinine 01.08 WBC 10.3 hemoglobin 13.5 and platelets 297 06/23/2021 Patient is seen in follow-up and tolerating diet with diet being advanced. Patient was instructed to follow-up with GI outpatient and also instructed to avoid marijuana use. Patient was instructed to follow-up with primary care provider upon discharge as well as he has had multiple ER visits for this this week. Patient is feeling better and requesting to go home. Patient also instructed to avoid vaping as he continues to do so. Currently no reports of chest pain, shortness of breath, or palpitations. Patient is afebrile. No reports of nausea or vomiting and patient is tolerating diet. Patient will be discharged home today. On exam vital signs are stable. Cardio S1, S2 are muffled. Respiratory system shows diminished breath sounds at the bases with no wheezing or rhonchi noted. Abdomen is soft and nontender. Nervous system shows no focal deficits. Please refer to medication reconciliation sheet for a list of medications. Patient Condition at Discharge: Good Plan - Discharge Summary Discharge Rx Participant: No New Discharge Prescriptions: Continue Venlafaxine HCl [Effexor XR] 150 mg PO DAILY Nicotine 14Mg/24Hr Patch [Habitrol] 1 patch TRANSDERM DAILY #14 patch Methylphenidate HCl [Ritalin LA] 30 mg PO DAILY Ondansetron Odt [Zofran ODT] 8 mg PO Q8HR PRN #24 tab PRN Reason: Nausea LORazepam [Ativan] 0.5 mg PO HS PRN 3 Days #3 tab PRN Reason: Nausea Changed Pantoprazole [Protonix] 40 mg PO AC-BRKFST #30 tablet. Discharge Medication List Venlafaxine HCl [Effexor XR] 150 mg PO DAILY 06/15/21 [History] Nicotine 14Mg/24Hr Patch [Habitrol] 1 patch TRANSDERM DAILY #14 patch 06/17/21 [Rx] Methylphenidate HCl [Ritalin LA] 30 mg PO DAILY 06/18/21 [History] Pantoprazole [Protonix] 40 mg PO AC-BRKFST #30 tablet. 06/22/21 [Rx] LORazepam [Ativan] 0.5 mg PO HS PRN 3 Days #3 tab 06/23/21 [Rx] Ondansetron Odt [Zofran ODT] 8 mg PO Q8HR PRN #24 tab 06/23/21 [Rx] Follow up Appointment(s)/Referral(s): Mehnaz Chatman MD [STAFF PHYSICIAN] - 1 Week Joshua Simms MD [Primary Care Provider] - 1-2 days Patient Instructions/Handouts: Dehydration (DC), Acute Nausea and Vomiting (DC) Activity/Diet/Wound Care/Special Instructions: Activity Limited until follow-up Continue with brat diet (bananas rice applesauce toast) bland diet and slowly advance as tolerated Avoid vaping and marijuana use Follow-up with primary care provider upon discharge Follow-up with GI outpatient Continue Protonix Continue Zofran sublingual as needed for nausea Discharge Disposition: HOME SELF-CARE
== END 2021-06-23 14:09 | disposition home or self-care (01) ==
LOC: EC 22:29 → 6NMEDSUR 06-22 02:03
PROVIDERS: ADMIT Hospitalist; ATTEND Hospitalist
DX: R11.2 Nausea with vomiting, unspecified (principal); E86.0 Dehydration; E87.2 Acidosis; R10.13 Epigastric pain; F12.90 Cannabis use, unspecified, uncomplicated; F32.9 Major depressive disorder, single episode, unspecified; Z79.899 Other long term (current) drug therapy; Z87.891 Personal history of nicotine dependence; Z87.11 Personal history of peptic ulcer disease; Z87.19 Personal history of other diseases of the digestive system; Z87.448 Personal history of other diseases of urinary system; Z90.49 Acquired absence of other specified parts of digestive tract
CPT/HCPCS: 96376 ×2; 96361; 96374; 96375; 99285; 36415; 93005; 80053; 82550; 82009; 83605; 83690; 83735; 84100; 84484; 85025; 81001; 83935; 80306; 83036; G0378 ×2; G0480; S4990 ×2; J2060; J1200; J2405 ×2; 80320

== ENCOUNTER 2025-01-15 02:25 | Emergency (ER) | payer OTHER ==
--- NOTE | 2025-01-15 02:35 | ED ---
Nausea/Vomiting/Diarrhea HPI - General Stated complaint: NV Time Seen by Provider: 01/15/25 02:32 Source: RN notes reviewed, old records reviewed Mode of arrival: ambulatory Limitations: no limitations - History of Present Illness Initial comments: This is a 24-year-old male to the ER for evaluation today. Patient presents for evaluation of nausea vomiting with history of marijuana use. Multiple prior hospitalizations for similar symptoms. Patient presents with 2 days of i ntractable nausea vomiting. Dehydrated lightheaded and dizzy MD complaint: nausea, vomiting -: days(s) (2) Description of Vomiting: food contents, watery, bilious Location: diffuse Radiation: none Severity: moderate Severity scale (1-10): 7 Consistency: constant Improves with: none Worsens with: none Associated Symptoms: loss of appetite, malaise, nausea/vomiting, weakness - Related Data Home Medications Medication Instructions Recorded Confirmed Venlafaxine HCl [Effexor XR] 150 mg PO DAILY 06/15/21 06/22/21 Methylphenidate HCl [Ritalin LA] 30 mg PO DAILY 06/18/21 06/22/21 Previous Rx's Medication Instructions Recorded Nicotine 14Mg/24Hr Patch [Habitrol] 1 patch TRANSDERM DAILY #14 patch 06/17/21 Pantoprazole [Protonix] 40 mg PO AC-BRKFST #30 tablet. 06/22/21 LORazepam [Ativan] 0.5 mg PO HS PRN 3 Days #3 tab 06/23/21 Ondansetron Odt [Zofran ODT] 8 mg PO Q8HR PRN #24 tab 06/23/21 Allergies Allergy/AdvReac Type Severity Reaction Status Date / Time haloperidol [From Haldol] Allergy Unknown Verified 01/15/25 02:38 Review of Systems ROS Statement: Those systems with pertinent positive or pertinent negative responses have been documented in the HPI. ROS Other: All systems not noted in ROS Statement are negative. Past Medical History Past Medical History: GI Bleed Additional Past Medical History / Comment(s): ulcer, chs, kidney failure History of Any Multi-Drug Resistant Organisms: None Reported Past Surgical History: Appendectomy Past Anesthesia/Blood Transfusion Reactions: No Reported Reaction Past Psychological History: Depression Smoking Status: Former smoker Past Alcohol Use History: Occasional Past Drug Use History: Marijuana - Past Family History Mother Family Medical History: No Reported History General Exam General appearance: alert, in no apparent distress Head exam: Present: atraumatic, normocephalic, normal inspection Eye exam: Present: normal appearance, PERRL, EOMI. Absent: scleral icterus, conjunctival injection, periorbital swelling ENT exam: Present: normal exam, mucous membranes moist Neck exam: Present: normal inspection. Absent: tenderness, meningismus, lymphadenopathy Respiratory exam: Present: normal lung sounds bilaterally. Absent: respiratory distress, wheezes, rales, rhonchi, stridor Cardiovascular Exam: Present: regular rate, normal rhythm, normal heart sounds. Absent: systolic murmur, diastolic murmur, rubs, gallop, clicks GI/Abdominal exam: Present: soft, normal bowel sounds. Absent: distended, tenderness, guarding, rebound, rigid Extremities exam: Present: normal inspection, full ROM, normal capillary refill. Absent: tenderness, pedal edema, joint swelling, calf tenderness Back exam: Present: normal inspection Neurological exam: Present: alert, oriented X3, CN II-XII intact Psychiatric exam: Present: normal affect, normal mood Skin exam: Present: warm, dry, intact, normal color. Absent: rash Course Vital Signs 01/15/25 02:36 Temperature 97.7 F Pulse Rate 83 Respiratory 16 Rate Blood Pressure 163/95 O2 Sat by Pulse 97 Oximetry - Reevaluation(s) Reevaluation #1: 01/15/25 04:47 Medical records reviewed Reevaluation #2: 01/15/25 04:47 Patient symptoms are improving Reevaluation #3: 01/15/25 04:47 Patient informed of results and questions answered Reevaluation #4: Was pt. sent in by a medical professional or institution (, PA, HEALTH TECHNICAL WRITER, urgent care, hospital, or penitentiary...) When possible be specific @ -no Did you speak to anyone other than the patient for history (EMS, parent, family, police, friend...)? What history was obtained from this source @ -no Did you review nursing and triage notes (agree or disagree)? Why? @ -agree Are old charts reviewed (outside hosp., previous admission, EMS record, old EKG, old radiological studies, urgent care reports/EKG's, penitentiary records)? Report findings @ -yes Differential Diagnosis (chest pain, altered mental status, abdominal pain women, abdominal pain men, vaginal bleeding, weakness, fever, dyspnea, syncope, headache, dizziness, GI bleed, back pain, seizure, CVA, palpatations, mental health, musculoskeletal)? @ -prior EKG interpreted by me (3pts min.). @ -no X-rays interpreted by me (1pt min.). @ -no CT interpreted by me (1pt min.). @ -no U/S interpreted by me (1pt. min.). @ -no What testing was considered but not performed or refused? (CT, X-rays, U/S, labs)? Why? @ -none What meds were considered but not given or refused? Why? @ -none Did you discuss the management of the patient with other professionals (professionals i.e. , PA, HEALTH TECHNICAL WRITER, lab, RT, psych nurse, social service director, tapeman, teacher, community services officer, returned case inspector)? Give summary @ -no Was smoking cessation discussed for >3mins.? @ -no Was critical care preformed (if so, how long)? @ -no Were there social determinants of health that impacted care today? How? (Homelessness, low income, unemployed, alcoholism, drug addiction, transportation, low edu. Level, literacy, decrease access to med. care, intermediate, rehab)? @ -none Was there de-escalation of care discussed even if they declined (Discuss DNR or withdrawal of care, Hospice)? DNR status @ -no What co-morbidities impacted this encounter? (DM, HTN, Smoking, COPD, CAD, Cancer, CVA, ARF, Chemo, Hep., AIDS, mental health diagnosis, sleep apnea, morbid obesity)? @ -none Was patient admitted / discharged? Hospital course, mention meds given and route, prescriptions, significant lab abnormalities, going to OR and other [facility] info. @ - 24 male with severe nausea vomiting and dehydration with symptoms improving throughout ER stay. Patient feels well and can be discharged home Discharge nausea vomiting dehydration Undiagnosed new problem with uncertain prognosis? @ -no Drug Therapy requiring intensive monitoring for toxicity (Heparin, Nitro, Insulin, Cardizem)? @ -no Were any procedures done? @ -no Diagnosis/symptom? @ - Acute, or Chronic, or Acute on Chronic? @ -Acute Uncomplicated (without systemic symptoms) or Complicated (systemic symptoms)? @ -Complicated Side effects of treatment? @ -no Exacerbation, Progression, or Severe Exacerbation? @ -exacerbation Poses a threat to life or bodily function? How? (Chest pain, [place], [place], pneumonia, PE, COPD, DKA, ARF, appy, cholecystitis, CVA, Diverticulitis, Homicidal, Suicidal, threat to staff... and all critical care pts) @ -no Medical Decision Making - Medical Decision Making 24 male with severe nausea vomiting and dehydration with symptoms improving throughout ER stay. Patient feels well and can be discharged home - Lab Data Result diagrams: 01/15/25 02:51 01/15/25 02:51 Lab Results 01/15/25 01/15/25 01/15/25 Range/Units 02:42 02:51 02:51 WBC 16.8 H (3.8-10.6) k/uL RBC 5.26 (4.30-5.90) m/uL Hgb 16.6 (13.0-17.5) gm/dL Hct 47.5 (39.0-53.0) % MCV 90.3 (80.0-100.0) fL MCH 31.5 (25.0-35.0) pg MCHC 34.8 (31.0-37.0) g/dL RDW 11.9 (11.5-15.5) % Plt Count 311 (150-450) k/uL MPV 8.8 Neutrophils % 84 % Lymphocytes % 8 % Monocytes % 5 % Eosinophils % 1 % Basophils % 1 % Neutrophils # 14.1 H (1.3-7.7) k/uL Lymphocytes # 1.4 (1.0-4.8) k/uL Monocytes # 0.9 (0-1.0) k/uL Eosinophils # 0.2 (0-0.7) k/uL Basophils # 0.1 (0-0.2) k/uL Sodium 137 (137-145) mmol/L Potassium 4.0 (3.5-5.1) mmol/L Chloride 100 (98-107) mmol/L Carbon Dioxide 18 L (22-30) mmol/L Anion Gap 19 mmol/L BUN 25 H (9-20) mg/dL Creatinine 1.49 H (0.66-1.25) mg/dL Est GFR (CKD-EPI)AfAm 75 (>60 ml/min/1.73 sqM) Est GFR (CKD-EPI)NonAf 65 (>60 ml/min/1.73 sqM) Glucose 139 H (74-99) mg/dL Plasma Lactic Acid Dixon (0.7-2.0) mmol/L Calcium 10.7 H (8.4-10.2) mg/dL Phosphorus 3.5 (2.5-4.5) mg/dL Magnesium 2.2 (1.6-2.3) mg/dL Total Bilirubin 2.2 H (0.2-1.3) mg/dL AST 64 H (17-59) U/L ALT 37 (4-49) U/L Alkaline Phosphatase 55 (38-126) U/L Troponin I (0.000-0.034) ng/mL Total Protein 8.8 H (6.3-8.2) g/dL Albumin 5.8 H (3.5-5.0) g/dL Lipase 51 (23-300) U/L Urine Color Yellow Urine Appearance Clear (Clear) Urine pH 6.0 (5.0-8.0) Ur Specific [place] 1.035 (1.001-1.035) Urine Protein 2+ H (Negative) Urine Glucose (UA) Negative (Negative) Urine Ketones 2+ H (Negative) Urine Blood Trace H (Negative) Urine Nitrite Negative (Negative) Urine Bilirubin 1+ H (Negative) Urine Urobilinogen 3.0 (<2.0) mg/dL Ur Leukocyte Esterase Negative (Negative) Urine RBC <1 (0-5) /hpf Urine WBC 3 (0-5) /hpf Urine Bacteria Rare H (None) /hpf Urine Mucus Moderate H (None) /hpf Salicylates <1.0 mg/dL Acetaminophen <10.0 ug/mL Serum Alcohol <10 mg/dL Acetone, Qual Negative (Negative) 01/15/25 01/15/25 Range/Units 02:51 02:51 WBC (3.8-10.6) k/uL RBC (4.30-5.90) m/uL Hgb (13.0-17.5) gm/dL Hct (39.0-53.0) % MCV (80.0-100.0) fL MCH (25.0-35.0) pg MCHC (31.0-37.0) g/dL RDW (11.5-15.5) % Plt Count (150-450) k/uL MPV Neutrophils % % Lymphocytes % % Monocytes % % Eosinophils % % Basophils % % Neutrophils # (1.3-7.7) k/uL Lymphocytes # (1.0-4.8) k/uL Monocytes # (0-1.0) k/uL Eosinophils # (0-0.7) k/uL Basophils # (0-0.2) k/uL Sodium (137-145) mmol/L Potassium (3.5-5.1) mmol/L Chloride (98-107) mmol/L Carbon Dioxide (22-30) mmol/L Anion Gap mmol/L BUN (9-20) mg/dL Creatinine (0.66-1.25) mg/dL Est GFR (CKD-EPI)AfAm (>60 ml/min/1.73 sqM) Est GFR (CKD-EPI)NonAf (>60 ml/min/1.73 sqM) Glucose (74-99) mg/dL Plasma Lactic Acid Dixon 1.4 (0.7-2.0) mmol/L Calcium (8.4-10.2) mg/dL Phosphorus (2.5-4.5) mg/dL Magnesium (1.6-2.3) mg/dL Total Bilirubin (0.2-1.3) mg/dL AST (17-59) U/L ALT (4-49) U/L Alkaline Phosphatase (38-126) U/L Troponin I <0.012 (0.000-0.034) ng/mL Total Protein (6.3-8.2) g/dL Albumin (3.5-5.0) g/dL Lipase (23-300) U/L Urine Color Urine Appearance (Clear) Urine pH (5.0-8.0) Ur Specific [place] (1.001-1.035) Urine Protein (Negative) Urine Glucose (UA) (Negative) Urine Ketones (Negative) Urine Blood (Negative) Urine Nitrite (Negative) Urine Bilirubin (Negative) Urine Urobilinogen (<2.0) mg/dL Ur Leukocyte Esterase (Negative) Urine RBC (0-5) /hpf Urine WBC (0-5) /hpf Urine Bacteria (None) /hpf Urine Mucus (None) /hpf Salicylates mg/dL Acetaminophen ug/mL Serum Alcohol mg/dL Acetone, Qual (Negative) Disposition Clinical Impression: Dehydration, Nausea & vomiting, Cannabinoid hyperemesis syndrome, High anion gap metabolic acidosis, DANTE (acute kidney injury) Disposition: HOME SELF-CARE Condition: Good Instructions (If sedation given, give patient instructions): Acute Nausea and Vomiting (ED) Is patient prescribed a controlled substance at d/c from ED?: No Referrals: Joshua Simms MD [Primary Care Provider] - 1-2 days Time of Disposition: 04:30
[2025-01-15 02:38] VITALS: BP 163/95; PULSE 83; RESP 16; TEMP 97.7
[2025-01-15] MEDS: SODIUM CHLORIDE 0.9% 1,000 ML IV STA ×2 (03:27→04:42)
[2025-01-15] MEDS: ONDANSETRON 4 MG/2 ML VIAL IVP STA (03:27)
[2025-01-15] MEDS: SODIUM CHLORIDE 0.9% 500 ML 500 ML IV STA (03:28)
[2025-01-15 03:32] LABS: ALT 37 U/L (4-49); AST 64 U/L (17-59); Acetaminophen <10.0 ug/mL; African American GFR (CKD) 75 (>60 ml/min/1.73 sqM); Albumin 5.8 g/dL (3.5-5.0); Alcohol <10 mg/dL; Alkaline Phosphatase 55 U/L (38-126); Anion Gap 19 mmol/L; Blood Urea Nitrogen 25 mg/dL (9-20); Calcium 10.7 mg/dL (8.4-10.2); Carbon Dioxide 18 mmol/L (22-30); Chloride 100 mmol/L (98-107); Glucose 139 mg/dL (74-99); Lipase 51 U/L (23-300); Magnesium 2.2 mg/dL (1.6-2.3); Non-African American GFR(CKD) 65 (>60 ml/min/1.73 sqM); Phosphorus 3.5 mg/dL (2.5-4.5); Salicylate <1.0 mg/dL; Sodium 137 mmol/L (137-145); Total Bilirubin 2.2 mg/dL (0.2-1.3); Total Protein 8.8 g/dL (6.3-8.2)
[2025-01-15 03:35] LABS: Appearance,Urine Clear (Clear); Bacteria,Urine Rare /hpf; Bilirubin,Urine 1+ (Negative); Blood,Urine Trace (Negative); Color,Urine Yellow; Glucose,Urine (UA) Negative (Negative); Ketones,Urine 2+ (Negative); Leukocyte Esterase,Urine Negative (Negative); Mucus,Urine Moderate /hpf; Nitrite,Urine Negative (Negative); Protein,Urine 2+ (Negative); RBC,Urine <1 /hpf (0-5); Specific Gravity,Urine 1.035 (1.001-1.035); WBC,Urine 3 /hpf (0-5)
[2025-01-15 03:39] LABS: Basophils # (A) 0.1 k/uL (0-0.2); Basophils % (A) 1 %; Eosinophils # (A) 0.2 k/uL (0-0.7); Eosinophils % (A) 1 %; HCT 47.5 % (39.0-53.0); HGB 16.6 gm/dL (13.0-17.5); Lymphocytes # (A) 1.4 k/uL (1.0-4.8); Lymphocytes % (A) 8 %; MCH 31.5 pg (25.0-35.0); MCHC 34.8 g/dL (31.0-37.0); MCV 90.3 fL (80.0-100.0); Mean Platelet Volume 8.8; Monocytes # (A) 0.9 k/uL (0-1.0); Monocytes % (A) 5 %; Neutrophils # (A) 14.1 k/uL (1.3-7.7); Neutrophils % (A) 84 %; Platelet Count 311 k/uL (150-450); RBC 5.26 m/uL (4.30-5.90); RDW 11.9 % (11.5-15.5); WBC 16.8 k/uL (3.8-10.6)
[2025-01-15] MEDS: PROCHLORPERAZINE INJ 10 MG/2 ML VIAL IVP STA (03:50)
[2025-01-15] MEDS: LACTATED RINGERS 1,000 ML BAG IV STA (03:51)
[2025-01-15] MEDS: diphenhydrAMINE 50 MG/ML 1 ML VIAL IVP STA (04:33)
[2025-01-15] MEDS: LORazepam 2 MG/ML INJ IV STA (04:33)
[2025-01-15] MEDS: ONDANSETRON 4 MG ODT STARTER PACK 2 TAB BTL PO STA (04:41)
== END 2025-01-15 07:28 | disposition home or self-care (01) ==
LOC: EC 02:25
DX: N17.9 Acute kidney failure, unspecified (principal); E87.20 Acidosis, unspecified; E86.0 Dehydration; Z87.891 Personal history of nicotine dependence; Z88.0 Allergy status to penicillin
CPT/HCPCS: 36415; 80053; 82009; 83605; 83690; 83735; 84100; 84484; 85025; 81001; 80143; 80179; 99283; 96374; 96375 ×3; 96361 ×2; G0480; J2060; J1200; J0780; J2405; S0119; 80320